=== PATIENT | female | born 1940 | race African-American/Black ===

== ENCOUNTER 2018-04-13 11:23 | Inpatient (IN) ==
[2018-04-13 12:16] LABS: Baso # (Auto) 0.1 th/mm3 (0.0-0.2); Baso % (Auto) 1.2 % (0.0-2.0); Eos % (Auto) 0.4 % (0.0-4.0); Hematocrit 35.4 % (35.0-46.0); Hemoglobin 11.5 gm/dL (11.6-15.3); Lymph # (Auto) 1.7 th/mm3 (1.0-4.8); Lymph % (Auto) 14.1 % (9.0-44.0); Mean Corpuscular HGB Conc 32.4 % (32.0-36.0); Mean Corpuscular Hemoglobin 29.6 pg (27.0-34.0); Mean Corpuscular Volume 91.2 fL (80.0-100.0); Mean Platelet Volume 6.5 fL (7.0-11.0); Neut # (Auto) 9.3 th/mm3 (1.8-7.7); Neut % (Auto) 76.3 % (16.0-70.0); Platelet Count 314 th/mm3 (150-450); Red Blood Count 3.88 mil/mm3 (4.00-5.30); Red Cell Distribution Width 15.6 % (11.6-17.2); White Blood Count 12.2 th/mm3 (4.0-11.0)
[2018-04-13 12:32] LABS: Activated Partial Thrombo Time 28.2 sec (23.4-31.7); INR 1.2 Ratio; Prothrombin Time 11.7 sec (9.8-11.6)
[2018-04-13 12:41] LABS: Bacteria,Urine Many /hpf; Bilirubin,Urine Negative (Negative); Clarity,Urine Hazy (Clear); Color,Urine Yellow (Yellw/Straw); Glucose,Urine (UA) Negative (Negative); Leukocyte Esterase,Urine Moderate (Negative); Mucus,Urine Few /lpf (Occasional); Nitrite,Urine Negative (Negative); Specific Gravity,Urine 1.017 (1.002-1.035); Squamous Epithelial Cell,Urine <1 /hpf (0-5)
[2018-04-13 12:42] LABS: Albumin 2.5 g/dL (3.4-5.0); Anion Gap 8 meq/L (5-15); Aspartate Aminotransferase 22 U/L (15-37); Calcium 8.2 mg/dL (8.5-10.1); Carbon Dioxide 27.8 meq/L (21.0-32.0); Chloride 102 meq/L (98-107); Glomerular Filtration Rate 32 mL/min (>89); Glucose,Random 152 mg/dL (74-106); Magnesium 1.3 mg/dL (1.5-2.5); Potassium 6.4 meq/L (3.5-5.1); Sodium 138 meq/L (136-145)
--- NOTE | 2018-04-13 12:46 | XR ---
EXAM DATE: 04/13/2018 12:42 PM EST AGE/SEX: 78 years / Female INDICATIONS: Short of breath, altered mental status CLINICAL DATA: This is the patient's initial encounter. Patient reports that signs and symptoms have been present for 1 day and indicates a pain score of Nonresponsive. MEDICAL/SURGICAL HISTORY: Chronic obstructive pulmonary disease. Diabetes. Hypertension. SC Non-responsive. COMPARISON: [facility], CHEST 1V SINGLE AP, 03/29/2018. . FINDINGS: The heart is stable. Minimal increased perihilar interstitial markings are noted consistent with mini mal pulmonary vascular congestion or minimal infiltrate/scattered atelectasis. CONCLUSION: 1. Minimal increased perihilar interstitial markings consistent with minimal pulmonary vascular norma estion or minimal infiltrate/scattered atelectasis. Electronically signed by: Humberto Brewer MD Board Certified Radiologist 04/13/2018 12:44 PM EST
[2018-04-13 12:47] LABS: Alanine Aminotransferase 13 U/L (10-53); Alkaline Phosphatase 102 U/L (45-117); Blood Urea Nitrogen 33 mg/dL (7-18); Total Protein 7.3 g/dL (6.4-8.2)
--- NOTE | 2018-04-13 13:45 | ED ---
HPI General Chief Complaint: Altered Mental Status Stated Complaint: Altered Mental Status Time Seen by Provider: 04/13/18 11:32 Source: patient, EMS and RN notes reviewed Mode of arrival: EMS Limitations: altered mental status History of Present Illness HPI narrative: 78-year-old female presents by ambulance with recent change of altered mental status. Patient has known history of stroke with left-sided deficit per EMS but she has been more confused recently. She recently had a UTI diagnosis and seems to be getting more confused when the antibiotics were stopped. Patient denies specific complaints but is a very poor historian and history is mainly obtained through EMS and paperwork as no one else is present at bedside on initial examination Related Data Home Medications Medication Instructions Recorded Confirmed atorvastatin [Lipitor] 20 mg PO HS 03/29/18 04/13/18 carvedilol [Coreg] 6.25 mg PO Q12HR 03/29/18 04/13/18 clonazepam [Klonopin] 0.5 mg PO BID 03/29/18 04/13/18 digoxin [Lanoxin] 0.125 mg PO DAILY 03/29/18 04/13/18 docusate sodium [Colace] 100 mg PO HS 03/29/18 04/13/18 escitalopram oxalate [Lexapro] 10 mg PO DAILY 03/29/18 04/13/18 furosemide [Lasix] 40 mg PO DAILY 03/29/18 04/13/18 glucagon (human recombinant) 1 mg IM DIRECTED PRN 03/29/18 04/13/18 [GlucaGen HypoKit] insulin glargine [Lantus U-100 18 unit SUBCUT QPM 03/29/18 04/13/18 Insulin] insulin glargine [Lantus U-100 26 unit SUBCUT QAM 03/29/18 04/13/18 Insulin] insulin lispro [Humalog U-100 10 unit SUBCUT BIDAC 03/29/18 04/13/18 Insulin] lisinopril 20 mg PO DAILY 03/29/18 04/13/18 metformin 1,000 mg PO BID 03/29/18 04/13/18 mirtazapine [Remeron] 7.5 mg PO HS 03/29/18 04/13/18 pantoprazole 40 mg PO BID 03/29/18 04/13/18 potassium chloride [Klor-Con 10] 10 meq PO DAILY 03/29/18 04/13/18 rivaroxaban 20 mg PO QPM 03/29/18 04/13/18 tramadol 50 mg PO Q8HR PRN 03/29/18 04/13/18 amlodipine [Norvasc] 10 mg PO DAILY 04/13/18 04/13/18 Previous Rx's Medication Instructions Recorded nitrofurantoin monohyd/m-cryst 100 mg PO BIDPC #14 cap 03/31/18 Allergies Allergy/AdvReac Type Severity Reaction Status Date / Time codeine Allergy Severe Anaphylaxis Verified 04/13/18 11:42 diatrizoate meglumine Allergy Severe Itching Verified 04/13/18 11:42 gadobenic acid Allergy Severe Itching Verified 04/13/18 11:42 gadodiamide Allergy Severe Itching Verified 04/13/18 11:42 gadoteridol Allergy Severe Itching Verified 04/13/18 11:42 iodixanol Allergy Severe Itching Verified 04/13/18 11:42 iohexol Allergy Severe Itching Verified 04/13/18 11:42 penicillin G Allergy Severe Anaphylaxis Verified 04/13/18 11:42 Review of Systems ROS Unobtainable ROS Unobtainable: unobtainable due to mental status PMFSH Medical History Medical History Anemia in chronic kidney disease (Acute) Heart failure (Acute) Major depressive disorder (Acute) Malignant neoplasm of ascending colon (Acute) UTI (urinary tract infection) (Acute) Anxiety (Acute) Atrial fibrillation (Acute) COPD (chronic obstructive pulmonary disease) (Acute) CVA (cerebral vascular accident) (Acute) HTN (hypertension) (Acute) Heart failure (Acute) Hemiplegia (Acute) History of DVT of lower extremity (Acute) History of GI bleed (Acute) History of pulmonary embolism (Acute) Hyperlipidemia (Acute) Type 2 diabetes mellitus (Acute) Surgical History Surgical History History of hysterectomy (Acute) Family History Family History Father Family history of diabetes mellitus Family history of heart disease Social History Social History Substance History: Unable to Obtain Second Hand Smoke Exposure: No Smoking Status: Unknown if ever smoked How Often Do You Have a Drink Containing Alcohol: Unable to Obtain Recent Travel in [facility] within the Last 8 Weeks: No Recent Out of Country Travel within the Last 8 Weeks: No Immunization History Tetanus Immunization: Unable to Assess Exam Narrative Exam Narrative: GENERAL: 78 y/o female in no apparent distress SKIN: Focused skin assessment warm/dry. HEAD: Atraumatic. Normocephalic. EYES: Pupils equal and round. No scleral icterus. No injection or drainage. ENT: No nasal bleeding or discharge. Mucous membranes pink and moist. NECK: Trachea midline. CARDIOVASCULAR: Regular rate and rhythm. RESPIRATORY: No accessory muscle use. no increased effort GASTROINTESTINAL: Abdomen soft, nondistended. MUSCULOSKELETAL: No obvious deformities. No clubbing. No cyanosis. NEUROLOGICAL: Awake and alert to name and location, unsure of date. left sided deficit from prior stroke noted. Clear speech. Course Reevaluation(s) Reevaluation #1: Given allergies patient was given Azactam for UTI and sepsis setting. Given stable blood pressure IV fluids were given very slowly and she will be monitored closely in the hospital Reevaluation #2: Potassium was elevated on repeat so was given hyperkalemia meds of calcium, bicarb, dextrose, insulin, albuterol and Kayexalate. She was also given gentle IV fluid hydration and will be admitted to the hospital for further care Consultations Consultation #1: dr carmona agrees to full admit Initial Documented Vital Signs Pulse Rate 67 04/13/18 11:29 Respiratory Rate 18 04/13/18 11:29 Blood Pressure 111/61 04/13/18 11:29 Pulse Oximetry 98 04/13/18 11:29 Last Documented Vital Signs Temperature 98.3 F 04/13/18 12:15 Pulse Rate 95 H 04/13/18 15:11 Respiratory Rate 14 04/13/18 15:11 Blood Pressure 126/61 04/13/18 12:15 Pulse Oximetry 98 04/13/18 15:14 Medical Decision Making [facility] Narrative Medical decision making narrative: We will check blood work, imaging and reevaluate Medical Screen Exam Complete: Yes Emergency Medical Condition: Yes Differential Diagnosis Differential Diagnosis: UTI, intracranial, renal failure, hyponatremia Lab Data Lab results reviewed: Yes I reviewed the patient's lab results. Result diagrams: 04/13/18 11:46 04/13/18 13:55 Lab Results 04/13/18 04/13/18 04/13/18 Range/Units 11:46 11:46 11:46 WBC 12.2 H (4.0-11.0) th/mm3 RBC 3.88 L (4.00-5.30) mil/mm3 Hgb 11.5 L (11.6-15.3) gm/dL Hct 35.4 (35.0-46.0) % MCV 91.2 (80.0-100.0) fL MCH 29.6 (27.0-34.0) pg MCHC 32.4 (32.0-36.0) % RDW 15.6 (11.6-17.2) % Plt Count 314 (150-450) th/mm3 MPV 6.5 L (7.0-11.0) fL Neut % (Auto) 76.3 H (16.0-70.0) % Lymph % (Auto) 14.1 (9.0-44.0) % [place] % (Auto) 8.0 (0.0-8.0) % Eos % (Auto) 0.4 (0.0-4.0) % Baso % (Auto) 1.2 (0.0-2.0) % Neut # (Auto) 9.3 H (1.8-7.7) th/mm3 Lymph # (Auto) 1.7 (1.0-4.8) th/mm3 [place] # (Auto) 1.0 H (0.0-0.9) th/mm3 Eos # (Auto) 0.0 (0.0-0.4) th/mm3 Baso # (Auto) 0.1 (0.0-0.2) th/mm3 WBC Differential . Differential Comment Auto diff final PT 11.7 H (9.8-11.6) sec INR 1.2 Ratio APTT 28.2 (23.4-31.7) sec Sodium 138 (136-145) meq/L Potassium 6.4 H (3.5-5.1) meq/L Chloride 102 (98-107) meq/L Carbon Dioxide 27.8 (21.0-32.0) meq/L Anion Gap 8 (5-15) meq/L BUN 33 H (7-18) mg/dL Creatinine 1.83 H (0.50-1.00) mg/dL Estimated GFR 32 L (>89) mL/min Random Glucose 152 H (74-106) mg/dL Lactic Acid (0.4-2.0) mmol/L Calcium 8.2 L (8.5-10.1) mg/dL Magnesium 1.3 L (1.5-2.5) mg/dL Total Bilirubin 0.4 (0.2-1.0) mg/dL AST 22 (15-37) U/L ALT 13 (10-53) U/L Alkaline Phosphatase 102 (45-117) U/L Total Creatine Kinase (26-192) U/L B-Natriuretic Peptide (0-100) pg/mL Total Protein 7.3 (6.4-8.2) g/dL Albumin 2.5 L (3.4-5.0) g/dL Urine Color (Yellw/Straw) Urine Clarity (Clear) Urine pH (5.0-8.5) Ur Specific [place] (1.002-1.035) Urine Protein (Neg-Trace) mg/dL Urine Glucose (UA) (Negative) mg/dL Urine Ketones (Negative) mg/dL Urine Occult Blood (Negative) Urine Nitrate (Negative) Urine Bilirubin (Negative) Urine Urobilinogen (Less than 2) mg/dL Ur Leukocyte Esterase (Negative) Urine WBC (0-5) /hpf Ur Squamous Epith Cells (0-5) /hpf Urine Bacteria (None) /hpf Urine Mucus (Occasional) /lpf Urine Yeast (None) /hpf Micro UA Comment Ur Microscopic Review Urine Culture Comments 04/13/18 04/13/18 04/13/18 Range/Units 11:46 11:46 11:46 WBC (4.0-11.0) th/mm3 RBC (4.00-5.30) mil/mm3 Hgb (11.6-15.3) gm/dL Hct (35.0-46.0) % MCV (80.0-100.0) fL MCH (27.0-34.0) pg MCHC (32.0-36.0) % RDW (11.6-17.2) % Plt Count (150-450) th/mm3 MPV (7.0-11.0) fL Neut % (Auto) (16.0-70.0) % Lymph % (Auto) (9.0-44.0) % [place] % (Auto) (0.0-8.0) % Eos % (Auto) (0.0-4.0) % Baso % (Auto) (0.0-2.0) % Neut # (Auto) (1.8-7.7) th/mm3 Lymph # (Auto) (1.0-4.8) th/mm3 [place] # (Auto) (0.0-0.9) th/mm3 Eos # (Auto) (0.0-0.4) th/mm3 Baso # (Auto) (0.0-0.2) th/mm3 WBC Differential Differential Comment PT (9.8-11.6) sec INR Ratio APTT (23.4-31.7) sec Sodium (136-145) meq/L Potassium (3.5-5.1) meq/L Chloride (98-107) meq/L Carbon Dioxide (21.0-32.0) meq/L Anion Gap (5-15) meq/L BUN (7-18) mg/dL Creatinine (0.50-1.00) mg/dL Estimated GFR (>89) mL/min Random Glucose (74-106) mg/dL Lactic Acid 3.1 H (0.4-2.0) mmol/L Calcium (8.5-10.1) mg/dL Magnesium (1.5-2.5) mg/dL Total Bilirubin (0.2-1.0) mg/dL AST (15-37) U/L ALT (10-53) U/L Alkaline Phosphatase (45-117) U/L Total Creatine Kinase 65 (26-192) U/L B-Natriuretic Peptide 5 (0-100) pg/mL Total Protein (6.4-8.2) g/dL Albumin (3.4-5.0) g/dL Urine Color (Yellw/Straw) Urine Clarity (Clear) Urine pH (5.0-8.5) Ur Specific [place] (1.002-1.035) Urine Protein (Neg-Trace) mg/dL Urine Glucose (UA) (Negative) mg/dL Urine Ketones (Negative) mg/dL Urine Occult Blood (Negative) Urine Nitrate (Negative) Urine Bilirubin (Negative) Urine Urobilinogen (Less than 2) mg/dL Ur Leukocyte Esterase (Negative) Urine WBC (0-5) /hpf Ur Squamous Epith Cells (0-5) /hpf Urine Bacteria (None) /hpf Urine Mucus (Occasional) /lpf Urine Yeast (None) /hpf Micro UA Comment Ur Microscopic Review Urine Culture Comments 04/13/18 04/13/18 04/13/18 Range/Units 11:46 11:55 13:55 WBC (4.0-11.0) th/mm3 RBC (4.00-5.30) mil/mm3 Hgb (11.6-15.3) gm/dL Hct (35.0-46.0) % MCV (80.0-100.0) fL MCH (27.0-34.0) pg MCHC (32.0-36.0) % RDW (11.6-17.2) % Plt Count (150-450) th/mm3 MPV (7.0-11.0) fL Neut % (Auto) (16.0-70.0) % Lymph % (Auto) (9.0-44.0) % [place] % (Auto) (0.0-8.0) % Eos % (Auto) (0.0-4.0) % Baso % (Auto) (0.0-2.0) % Neut # (Auto) (1.8-7.7) th/mm3 Lymph # (Auto) (1.0-4.8) th/mm3 [place] # (Auto) (0.0-0.9) th/mm3 Eos # (Auto) (0.0-0.4) th/mm3 Baso # (Auto) (0.0-0.2) th/mm3 WBC Differential Differential Comment PT (9.8-11.6) sec INR Ratio APTT (23.4-31.7) sec Sodium (136-145) meq/L Potassium (3.5-5.1) meq/L Chloride (98-107) meq/L Carbon Dioxide (21.0-32.0) meq/L Anion Gap (5-15) meq/L BUN (7-18) mg/dL Creatinine (0.50-1.00) mg/dL Estimated GFR (>89) mL/min Random Glucose (74-106) mg/dL Lactic Acid 2.9 H (0.4-2.0) mmol/L Calcium (8.5-10.1) mg/dL Magnesium (1.5-2.5) mg/dL Total Bilirubin (0.2-1.0) mg/dL AST (15-37) U/L ALT (10-53) U/L Alkaline Phosphatase (45-117) U/L Total Creatine Kinase (26-192) U/L B-Natriuretic Peptide 7 (0-100) pg/mL Total Protein (6.4-8.2) g/dL Albumin (3.4-5.0) g/dL Urine Color Yellow (Yellw/Straw) Urine Clarity Hazy H (Clear) Urine pH 5.0 (5.0-8.5) Ur Specific [place] 1.017 (1.002-1.035) Urine Protein Negative (Neg-Trace) mg/dL Urine Glucose (UA) Negative (Negative) mg/dL Urine Ketones Negative (Negative) mg/dL Urine Occult Blood Negative (Negative) Urine Nitrate Negative (Negative) Urine Bilirubin Negative (Negative) Urine Urobilinogen Less than 2 (Less than 2) mg/dL Ur Leukocyte Esterase Moderate H (Negative) Urine WBC 3 (0-5) /hpf Ur Squamous Epith Cells <1 (0-5) /hpf Urine Bacteria Many H (None) /hpf Urine Mucus Few H (Occasional) /lpf Urine Yeast Few H (None) /hpf Micro UA Comment Cath-culture ind Ur Microscopic Review Not Reportable Urine Culture Comments Cath-cult indicated 04/13/18 Range/Units 13:55 WBC (4.0-11.0) th/mm3 RBC (4.00-5.30) mil/mm3 Hgb (11.6-15.3) gm/dL Hct (35.0-46.0) % MCV (80.0-100.0) fL MCH (27.0-34.0) pg MCHC (32.0-36.0) % RDW (11.6-17.2) % Plt Count (150-450) th/mm3 MPV (7.0-11.0) fL Neut % (Auto) (16.0-70.0) % Lymph % (Auto) (9.0-44.0) % [place] % (Auto) (0.0-8.0) % Eos % (Auto) (0.0-4.0) % Baso % (Auto) (0.0-2.0) % Neut # (Auto) (1.8-7.7) th/mm3 Lymph # (Auto) (1.0-4.8) th/mm3 [place] # (Auto) (0.0-0.9) th/mm3 Eos # (Auto) (0.0-0.4) th/mm3 Baso # (Auto) (0.0-0.2) th/mm3 WBC Differential Differential Comment PT (9.8-11.6) sec INR Ratio APTT (23.4-31.7) sec Sodium (136-145) meq/L Potassium 6.3 H (3.5-5.1) meq/L Chloride (98-107) meq/L Carbon Dioxide (21.0-32.0) meq/L Anion Gap (5-15) meq/L BUN (7-18) mg/dL Creatinine (0.50-1.00) mg/dL Estimated GFR (>89) mL/min Random Glucose (74-106) mg/dL Lactic Acid (0.4-2.0) mmol/L Calcium (8.5-10.1) mg/dL Magnesium (1.5-2.5) mg/dL Total Bilirubin (0.2-1.0) mg/dL AST (15-37) U/L ALT (10-53) U/L Alkaline Phosphatase (45-117) U/L Total Creatine Kinase (26-192) U/L B-Natriuretic Peptide (0-100) pg/mL Total Protein (6.4-8.2) g/dL Albumin (3.4-5.0) g/dL Urine Color (Yellw/Straw) Urine Clarity (Clear) Urine pH (5.0-8.5) Ur Specific [place] (1.002-1.035) Urine Protein (Neg-Trace) mg/dL Urine Glucose (UA) (Negative) mg/dL Urine Ketones (Negative) mg/dL Urine Occult Blood (Negative) Urine Nitrate (Negative) Urine Bilirubin (Negative) Urine Urobilinogen (Less than 2) mg/dL Ur Leukocyte Esterase (Negative) Urine WBC (0-5) /hpf Ur Squamous Epith Cells (0-5) /hpf Urine Bacteria (None) /hpf Urine Mucus (Occasional) /lpf Urine Yeast (None) /hpf Micro UA Comment Ur Microscopic Review Urine Culture Comments Imaging Data Attestation: I personally reviewed and interpreted this imaging study as follows : Radiologist's impression: Chest X-Ray 04/13/18 11:32 CONCLUSION: 1. Minimal increased perihilar interstitial markings consistent with minimal pulmonary vascular congestion or minimal infiltrate/scattered atelectasis. Head CT 04/13/18 11:32 CONCLUSION: 1. 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 2. Chronic left-sided mastoiditis. 3. Nothing acute. . Abdomen/Pelvis CT 04/13/18 12:52 CONCLUSION: 1. Mild diffuse urinary bladder wall thickening. 2. Calcified density layering within the urinary bladder consistent with probable bladder stones. 3. Stable nodular enlargement of the adrenal glands bilaterally consistent with possible adrenal hyperplasia. 4. Stable multiple bilateral renal cysts. 5. Enlarged fatty liver. 6. Posterior bibasilar pulmonary infiltrates. Discharge Plan Discharge Disposition Patient Disposition: ED Admit(ED Internal Use Only) Discharge Order Discharge Orders: ED Use Only Admit Order (Routine); Ordered 04/13/18 Ordered By: Kacie Schmidt Discharge Details Diagnosis: Sepsis, Altered mental status, Acute UTI, Acute renal failure Physicians Team ED Provider: Kacie Schmidt Primary Care Provider: Chandana Dallas Attending Provider: Patience Carmona Discharge Interventions Interventions: Vital Signs Last Done: 04/13/18 12:15 Status ED Status: Admitted Patient
--- NOTE | 2018-04-13 14:01 | CT ---
EXAM DATE: 04/13/2018 1:35 PM EST AGE/SEX: 78 years / Female INDICATIONS: Altered mental status. CLINICAL DATA: This is the patient's initial encounter. Patient reports that signs and symptoms have been present for 1 day and indicates a pain score of Nonresponsive. MEDICAL/SURGICAL HISTORY: Carcinoma, colon. Hypertension. Cardiovascular disease. None. RADIATION DOSE: 56.35 CTDI (mGy) COMPARISON: No prior exams available for comparison. TECHNIQUE: CT of the head without contrast. Using automated exposure control and adjustment of the mA and/or kV according to patient size, radiation dose was kept as low as reasonably achievable to ob tain optimal diagnostic quality images. DICOM format image data is available electronically for revi ew and comparison. FINDINGS: Cerebrum: There is some cortical and central atrophy. No evidence of midline shift, mass lesion, he morrhage or acute infarction. Extensive periventricular areas of diminished attenuation are characte ristic of severe small vessel ischemic demyelination. 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 Posterior Fossa: The cerebellum and brainstem are intact. The 4th ventricle is midline. The cerebe llopontine angle is unremarkable. Extracranial: The visualized portion of the orbits is intact. Sclerosis in the left temporal bone ch aracteristic of chronic mastoiditis. Skull: The calvaria is intact. No evidence of skull fracture. CONCLUSION: 1. 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 2. Chronic left-sided mastoiditis. 3. Nothing acute. . Electronically signed by: Sean Schuster MD Board Certified Radiologist 04/13/2018 2:00 PM EST
--- NOTE | 2018-04-13 14:15 | CT ---
EXAM DATE: 04/13/2018 1:45 PM EST AGE/SEX: 78 years / Female INDICATIONS: Abdominal pain. CLINICAL DATA: This is the patient's initial encounter. Patient reports that signs and symptoms have been present for 1 day and indicates a pain score of Nonresponsive. MEDICAL/SURGICAL HISTORY: Hypertension. Diabetes. Chronic renal insufficiency. None. RADIATION DOSE: 26.99 CTDI (mGy) ; Patient body habitus [place] [facility] [place], [place]/20/2015. [facility] [place] W & W/O CONTRAST, 10/18/19 16. . TECHNIQUE: Multiple contiguous axial images were obtained through the abdomen. Images were obtained using multiple row detector helical technique. Using automated exposure control and adjustment of the mA and/or kV according to patient size, radiation dose was kept as low as reasonably achievable to o btain optimal diagnostic quality images. DICOM format image data is available electronically for rev iew and comparison. FINDINGS: Lower Lungs: Posterior bibasilar patchiness is noted. Liver: The liver is enlarged and demonstrates diffuse fatty infiltration. No focal mass is noted.. Th ere is no dilation of the biliary tree. Spleen: Homogeneous density without enlargement. Pancreas: Unremarkable without mass or calcification. Kidneys: Normal in size and shape. No evidence of mass or hydronephrosis. Multiple stable bilateral renal cysts are noted. Adrenal Glands: Nodular enlargement of the adrenal glands is stable. Aorta: The aorta and proximal iliac vessels are grossly unremarkable without aneurysmal dilation. Bowel/Mesentery: The bowel loops are grossly unremarkable. The cecum and sigmoid colon have a normal configuration. Abdominal Wall: Intact. Retroperitoneum: No evidence of adenopathy in the retrocrural, para-aortic, or deep pelvic regions. Bladder: Mild diffuse urinary bladder wall thickening is noted. There is calcified density layering w ithin the urinary bladder consistent with probable bladder stones. Reproductive Organs: No abnormal masses or calcifications seen. Inguinal: The inguinal region is unremarkable without evidence of adenopathy. Bony Structures: Degenerative changes and scoliosis of the thoracal lumbar spine are noted.. CONCLUSION: 1. Mild diffuse urinary bladder wall thickening. 2. Calcified density layering within the urinary bladder consistent with probable bladder stones. 3. Stable nodular enlargement of the adrenal glands bilaterally consistent with possible adrenal hyp erplasia. 4. Stable multiple bilateral renal cysts. 5. Enlarged fatty liver. 6. Posterior bibasilar pulmonary infiltrates. Electronically signed by: Humberto Brewer MD Board Certified Radiologist 04/13/2018 2:13 PM EST
[2018-04-13] MEDS ORDERED: Sodium Polystyrene Sulfonate/Sorbitol Liq 15 GM/60 ML UDC PO ONE (14:33)
[2018-04-13] MEDS ORDERED: RESP: Albuterol Concentrated 2.5 MG/0.5 ML Neb NEB ONE (14:33)
[2018-04-13] MEDS ORDERED: Calcium Gluconate Inj 1 GM in Sodium Chlor 0.9% Inj 100 ML IV.SIG ONE (14:33)
[2018-04-13] MEDS ORDERED: Dextrose 50% in Water 50 ML Vial IV.PUSH ONE (15:05)
[2018-04-13] MEDS ORDERED: Acetaminophen 325 MG Tablet PO PRN (16:47)
[2018-04-13] MEDS ORDERED: Bisacodyl 10 MG Supp RECTAL PRN (16:47)
--- NOTE | 2018-04-13 16:51 | P.HPIM ---
History of Present Illness Primary Care Physician: Chandana Dallas MD Chief Complaint: altered mental status History of Present Illness: 78-year-old female with multiple medical problems, presents by ambulance from SNF with recent change of altered mental status. Patient has known history of stroke with left-sided deficit per EMS and records reviewed, but she has been more confused recently. She recently had a UTI diagnosis and seems to be getting more confused when the antibiotics were stopped. Patient denies specific complaints but is a very poor historian and history is mainly obtained through EMS, paperwork, records. Inpatient Certification: I certify that the inpatient services were ordered in accordance with Medicare regulations governing the order. This includes certification that hospital inpatient services are reasonable and necessary and in the case of services not specified as inpatient-only under 42 CFR 419.22(n), that they are appropriately provided as inpatient services in accordance to with the 2-midnight benchmark under 43 CFR 412.3(e) Estimated Total Length of Stay (Days): 5 Plans for Post Hospital Care: SNF Review of Systems All other systems reviewed negative except as stated in HPI, unobtainable due to mental condition PMFSH - History History Provided By: Chief Executive Officer / EMT - Medical History Medical History: Medical History (Last Reviewed 04/13/18 @ 16:51 by Patience Ashby MD) Anemia in chronic kidney disease Heart failure Major depressive disorder Malignant neoplasm of ascending colon UTI (urinary tract infection) Anxiety Atrial fibrillation COPD (chronic obstructive pulmonary disease) CVA (cerebral vascular accident) HTN (hypertension) Heart failure Hemiplegia History of DVT of lower extremity History of GI bleed History of pulmonary embolism Hyperlipidemia Type 2 diabetes mellitus - Surgical History Surgical History: Surgical History (Last Reviewed 04/13/18 @ 16:51 by Patience Ashby MD) History of hysterectomy - Family History Family History: Family History (Last Reviewed 04/13/18 @ 16:51 by Patience Ashby MD) Father Family history of diabetes mellitus Family history of heart disease - Tobacco History Second Hand Smoke Exposure: No Smoking Status: Unknown if ever smoked - Alcohol History How Often Do You Have a Drink Containing Alcohol: Unable to Obtain - Substance Use History Substance History: Unable to Obtain - Travel History Recent Travel in the [place] Within the Last 8 Weeks: No Recent Travel Out of the Country Within the Last 8 Weeks: No - Immunization History Tetanus Immunization: Unable to Assess Medications and Allergies Active Medications: Active Medications Amlodipine Besylate (Norvasc) 10 mg PO DAILY [facility] Atorvastatin Calcium (Lipitor) 20 mg PO HS [facility] Carvedilol (Coreg) 6.25 mg PO Q12HR [facility] Clonazepam (Klonopin) 0.5 mg PO BID [facility] Digoxin (Lanoxin) 125 mcg PO DAILY [facility] Docusate Sodium (Colace) 100 mg PO HS [facility] Escitalopram Oxalate (Lexapro) 10 mg PO DAILY [facility] Furosemide (Lasix) 40 mg PO DAILY [facility] Ceftriaxone Sodium 1,000 mg/ (Sodium Chloride) 100 mls @ 200 mls/hr IV.SIG Q24H DIPIKA Lisinopril (Prinivil) 20 mg PO DAILY [facility] Mirtazapine (Remeron) 7.5 mg PO HS [facility] Pantoprazole Sodium (Protonix) 40 mg PO BID DIP[facility] Rivaroxaban (Xarelto) 20 mg PO QPM [facility] Sodium Chloride (Ns Flush) 2 ml IV.FLUSH PRN PRN PRN Reason: FLUSH AFTER USING IV ACCESS Tramadol HCl (Ultram) 50 mg PO Q8HR PRN PRN Reason: Moderate to severe pain Allergies Allergy/AdvReac Type Severity Reaction Status Date / Time codeine Allergy Severe Anaphylaxis Verified 04/13/18 11:42 diatrizoate meglumine Allergy Severe Itching Verified 04/13/18 11:42 gadobenic acid Allergy Severe Itching Verified 04/13/18 11:42 gadodiamide Allergy Severe Itching Verified 04/13/18 11:42 gadoteridol Allergy Severe Itching Verified 04/13/18 11:42 iodixanol Allergy Severe Itching Verified 04/13/18 11:42 iohexol Allergy Severe Itching Verified 04/13/18 11:42 penicillin G Allergy Severe Anaphylaxis Verified 04/13/18 11:42 Home Medications Medication Instructions Recorded Confirmed Type atorvastatin [Lipitor] 20 mg PO HS 03/29/18 04/13/18 History carvedilol [Coreg] 6.25 mg PO Q12HR 03/29/18 04/13/18 History clonazepam [Klonopin] 0.5 mg PO BID 03/29/18 04/13/18 History digoxin [Lanoxin] 0.125 mg PO DAILY 03/29/18 04/13/18 History docusate sodium [Colace] 100 mg PO HS 03/29/18 04/13/18 History escitalopram oxalate [Lexapro] 10 mg PO DAILY 03/29/18 04/13/18 History furosemide [Lasix] 40 mg PO DAILY 03/29/18 04/13/18 History glucagon (human recombinant) 1 mg IM DIRECTED PRN 03/29/18 04/13/18 History [GlucaGen HypoKit] insulin glargine [Lantus U-100 18 unit SUBCUT QPM 03/29/18 04/13/18 History Insulin] insulin glargine [Lantus U-100 26 unit SUBCUT QAM 03/29/18 04/13/18 History Insulin] insulin lispro [Humalog U-100 10 unit SUBCUT BIDAC 03/29/18 04/13/18 History Insulin] lisinopril 20 mg PO DAILY 03/29/18 04/13/18 History metformin 1,000 mg PO BID 03/29/18 04/13/18 History mirtazapine [Remeron] 7.5 mg PO HS 03/29/18 04/13/18 History pantoprazole 40 mg PO BID 03/29/18 04/13/18 History potassium chloride [Klor-Con 10] 10 meq PO DAILY 03/29/18 04/13/18 History rivaroxaban 20 mg PO QPM 03/29/18 04/13/18 History tramadol 50 mg PO Q8HR PRN 03/29/18 04/13/18 History amlodipine [Norvasc] 10 mg PO DAILY 04/13/18 04/13/18 History Exam Vital signs: Vital Signs 04/13/18 11:29 04/13/18 11:39 04/13/18 12:15 Temperature 98.3 F Pulse Rate 67 92 H 93 H Respiratory Rate 18 18 Blood Pressure 111/61 126/61 Pulse Oximetry 98 98 100 04/13/18 15:11 04/13/18 15:14 04/13/18 16:26 Temperature Pulse Rate 95 H 104 H Respiratory Rate 14 19 Blood Pressure 136/66 Pulse Oximetry 98 97 Intake & Output 04/12/18 04/13/18 04/13/18 18:59 06:59 18:59 Intake Total 100 / 100 Output Total 250 / 250 Balance -150 / -150 Weight 88.451 kg Intake: IV 100 / 100 Azactam Inj 1,000 MG In NS Inj 100 / 100 100 ML @ 200 mls/hr IV.SIG STAT STA Rx#:[id number] Output: Urine Amount (Catheter) 250 / 250 Straight 250 / 250 Narrative: GENERAL: 78 yo female, well nourished well developed , somnolent. SKIN: Warm and dry. HEAD: Atraumatic. Normocephalic. EYES: Pupils equal and round. No scleral icterus. No injection or drainage. ENT: No nasal bleeding or discharge. Mucous membranes pink and moist. NECK: Trachea midline. No JVD. CARDIOVASCULAR: Regular rate and rhythm. RESPIRATORY: No accessory muscle use. Clear to auscultation. Breath sounds equal bilaterally. GASTROINTESTINAL: Abdomen soft, non-tender, nondistended. Hepatic and splenic margins not palpable. MUSCULOSKELETAL: Extremities without clubbing, cyanosis, or edema. No obvious deformities. NEUROLOGICAL: Somnolent. No obvious cranial nerve deficits. Motor grossly within normal limits. Follows some commands. Results - Labs CBC & Chem 7: 04/13/18 11:46 04/13/18 13:55 Labs: Short CBC 04/13/18 Range/Units 11:46 WBC 12.2 H (4.0-11.0) th/mm3 Hgb 11.5 L (11.6-15.3) gm/dL Hct 35.4 (35.0-46.0) % Plt Count 314 (150-450) th/mm3 BMP 04/13/18 04/13/18 11:46 13:55 Sodium 138 Potassium 6.4 H 6.3 H Chloride 102 Carbon Dioxide 27.8 BUN 33 H Creatinine 1.83 H Calcium 8.2 L Cardiac Enzymes 04/13/18 Range/Units 11:46 Total Creatine Kinase 65 (26-192) U/L Liver Function 04/13/18 Range/Units 11:46 Total Bilirubin 0.4 (0.2-1.0) mg/dL AST 22 (15-37) U/L ALT 13 (10-53) U/L Alkaline Phosphatase 102 (45-117) U/L Albumin 2.5 L (3.4-5.0) g/dL Urine 04/13/18 Range/Units 11:55 Urine Color Yellow (Yellw/Straw) Urine Clarity Hazy H (Clear) Urine pH 5.0 (5.0-8.5) Ur Specific Fay 1.017 (1.002-1.035) Urine Protein Negative (Neg-Trace) mg/dL Urine Glucose (UA) Negative (Negative) mg/dL - Imaging Impressions Chest X-Ray 04/13/18 11:32 CONCLUSION: 1. Minimal increased perihilar interstitial markings consistent with minimal pulmonary vascular congestion or minimal infiltrate/scattered atelectasis. Head CT 04/13/18 11:32 CONCLUSION: 1. 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 2. Chronic left-sided mastoiditis. 3. Nothing acute. . Abdomen/Pelvis CT 04/13/18 12:52 CONCLUSION: 1. Mild diffuse urinary bladder wall thickening. 2. Calcified density layering within the urinary bladder consistent with probable bladder stones. 3. Stable nodular enlargement of the adrenal glands bilaterally consistent with possible adrenal hyperplasia. 4. Stable multiple bilateral renal cysts. 5. Enlarged fatty liver. 6. Posterior bibasilar pulmonary infiltrates. Caprini VTE Risk Assessment Caprini VTE Risk Assessment: Moderate/High Risk (score >= 2) Caprini Risk Assessment Model: Point Value = 1 Point Value = 2 Point Value = 3 Point Value = 5 Age 41-60 Minor surgery BMI > 25 kg/m2 Swollen legs Varicose veins or History of unexplained or recurrent spontaneous Oral contraceptives or hormone replacement Sepsis (< 1 month) Serious lung disease, including pneumonia (< 1 month) Abnormal pulmonary function Acute myocardial infarction Congestive heart failure (< 1 month) History of inflammatory bowel disease Medical patient at bed rest Age 61-74 Arthroscopic surgery Major open surgery (> 45 min) Laparoscopic surgery (> 45 min) Malignancy Confined to bed (> 72 hours) Immobilizing plaster cast Central venous access Age >= 75 History of VTE Family history of VTE Factor V Leiden Prothrombin [id number] Lupus anticoagulant Anticardiolipin antibodies Elevated serum homocysteine Heparin-induced thrombocytopenia Other congenital or acquired thrombophilia Stroke (< 1 month) Elective arthroplasty Hip, pelvis, or leg fracture Acute spinal cord injury (< 1 month) Prophylaxis Regimen: Total Risk Factor Score Risk Level Prophylaxis Regimen 0-1 Low Early ambulation 2 Moderate Order ONE of the following: *Sequential Compression Device (SCD) *Heparin 5000 units SQ BID 3-4 Higher Order ONE of the following medications: *Heparin 5000 units SQ TID *Enoxaparin/Lovenox 40 mg SQ daily (WT < 150 kg, CrCl > 30 mL/min) *Enoxaparin/Lovenox 30 mg SQ daily (WT < 150 kg, CrCl > 10-29 mL/min) *Enoxaparin/Lovenox 30 mg SQ BID (WT < 150 kg, CrCl > 30 mL/min) AND/OR *Sequential Compression Device (SCD) 5 or more Highest Order ONE of the following medications: *Heparin 5000 units SQ TID (Preferred with Epidurals) *Enoxaparin/Lovenox 40 mg SQ daily (WT < 150 kg, CrCl > 30 mL/min) *Enoxaparin/Lovenox 30 mg SQ daily (WT < 150 kg, CrCl > 10-29 mL/min) *Enoxaparin/Lovenox 30 mg SQ BID (WT < 150 kg, CrCl > 30 mL/min) AND *Sequential Compression Device (SCD) Assessment and Plan - Plan 78 yo female, with Acute toxic/metabolic encephalopathy- 2/2 severe sepsis Severe Sepsis( leukocytosis, tachycardia, UTI poss PNA, elevated LA, DOUG ) on admission Penicillin allergy DOUG Lactic acidosis Blood cultures, urine cultures pending Start meropenem IV Consult ID IVF- gentle as patient also with h/o CHF Monitor kidney function closely. Repeat LA. Telemetry Hyperkalemia: stop K supplement History of CVA: continue statin. Continue PT/OT. Cont home meds. History of Atrial fibrillation: Xarelto. Resume home meds Rates are controlled. History of DVT/PE: Xarelto Hypertension: Continue Coreg, Norvasc, lisinopril. Diabetes type 2: Continue her on Levemir 10 units subcutaneous twice a day, with sliding scale insulin for now. CAD: Previous stent. Holding aspirin due to bleed. Continue home medications CHF, chronic: unknown type. Continue home medications. check BNP Continue Lasix and Coreg COPD: No evidence of exacerbation. Continue bronchodilators as needed Anxiety disorder: continue Klonopin. DVT prophylaxis: SCDs, xarelto
[2018-04-13] MEDS ORDERED: Dextrose 50% in Water 50 ML Vial IV.PUSH PRN (16:53)
[2018-04-13] MEDS ORDERED: ASP: Documented allergy to Penicillins or Cephalosporins OTHER PRN ×2 (16:53→19:50)
[2018-04-13] MEDS ORDERED: Meropenem Inj 500 MG in Sodium Chlor 0.9% Inj 100 ML IV.SIG STA (16:53)
[2018-04-13] MEDS: Sod Chloride 0.9% Inj 1,000 ML IV.CONT SCH (18:36)
[2018-04-13] MEDS: Rivaroxaban 20 MG Tablet PO SCH (18:37)
[2018-04-13] MEDS: Insulin NovoLOG Aspart Correctional Sugar Inj SQ SCH ×2 (18:37→22:29)
[2018-04-13] MEDS: Mirtazapine 15 MG Tablet PO SCH (22:21)
[2018-04-13] MEDS: Carvedilol 6.25 MG Tablet PO SCH (22:23)
[2018-04-13] MEDS: Senna/Docusate Sodium 8.6/50 MG Tablet PO SCH (22:23)
[2018-04-13] MEDS: Docusate Sodium 100 MG Capsule PO SCH (22:23)
[2018-04-13] MEDS: clonazePAM 0.5 MG Tablet PO SCH (22:24)
[2018-04-13] MEDS: Insulin Detemir Inj 1,000 UNIT/10 ML Vial SQ SCH (22:28)
[2018-04-14 06:17] LABS: Baso # (Auto) 0.1 th/mm3 (0.0-0.2); Baso % (Auto) 0.7 % (0.0-2.0); Eos # (Auto) 0.1 th/mm3 (0.0-0.4); Eos % (Auto) 0.5 % (0.0-4.0); Hematocrit 35.8 % (35.0-46.0); Hemoglobin 11.8 gm/dL (11.6-15.3); Lymph # (Auto) 1.9 th/mm3 (1.0-4.8); Lymph % (Auto) 16.2 % (9.0-44.0); Mean Corpuscular HGB Conc 33.1 % (32.0-36.0); Mean Corpuscular Hemoglobin 29.2 pg (27.0-34.0); Mean Corpuscular Volume 88.3 fL (80.0-100.0); Mean Platelet Volume 6.7 fL (7.0-11.0); Mono # (Auto) 1.1 th/mm3 (0.0-0.9); Mono % (Auto) 9.4 % (0.0-8.0); Neut # (Auto) 8.4 th/mm3 (1.8-7.7); Neut % (Auto) 73.2 % (16.0-70.0); Platelet Count 328 th/mm3 (150-450); Red Blood Count 4.05 mil/mm3 (4.00-5.30); Red Cell Distribution Width 15.4 % (11.6-17.2)
[2018-04-14 06:18] LABS: White Blood Count 11.5 th/mm3 (4.0-11.0)
[2018-04-14 06:39] LABS: Calcium 7.9 mg/dL (8.5-10.1); Carbon Dioxide 32.3 meq/L (21.0-32.0); Potassium 4.6 meq/L (3.5-5.1)
[2018-04-14] MEDS: Carvedilol 6.25 MG Tablet PO SCH ×2 (09:45→21:02)
[2018-04-14] MEDS: amLODIPine 10 MG Tablet PO SCH (09:45)
[2018-04-14] MEDS: Lisinopril 20 MG Tablet PO SCH (09:45)
[2018-04-14] MEDS: Senna/Docusate Sodium 8.6/50 MG Tablet PO SCH ×2 (09:45→21:03)
[2018-04-14] MEDS: clonazePAM 0.5 MG Tablet PO SCH ×2 (09:46→21:02)
[2018-04-14] MEDS: Escitalopram 10 MG Tablet PO SCH (09:46)
[2018-04-14] MEDS: Furosemide 40 MG Tablet PO SCH (09:46)
[2018-04-14] MEDS: Digoxin 125 MCG Tablet PO SCH (09:46)
[2018-04-14] MEDS: Sod Chloride 0.9% Inj 1,000 ML IV.CONT SCH ×2 (09:47→22:52)
[2018-04-14] MEDS: Insulin NovoLOG Aspart Correctional Sugar Inj SQ SCH ×4 (09:54→21:08)
[2018-04-14] MEDS: Insulin Detemir Inj 1,000 UNIT/10 ML Vial SQ SCH ×2 (09:54→21:02)
--- NOTE | 2018-04-14 11:26 | P.PNIM ---
Subjective Interval history: The patient is in bed she appears tired and chronically ill. However says she is improved since yesterday. She is more awake and alert knows her name and date of , president of [facility], hospital name. Does not know the date. No fever overnight. Reports chills. Reports being tired. No pain in her abdomen. Some nausea but no vomiting. Able to eat some food today with help. Physical Exam Vital signs: Last Vital Signs Temp 98.3 F 04/14/18 08:00 Pulse 113 H 04/14/18 08:00 Resp 16 04/14/18 08:00 BP 144/67 H 04/14/18 08:00 Pulse Ox 93 L 04/14/18 08:00 Intake & Output 04/12/18 04/13/18 04/14/18 04/15/18 06:59 06:59 06:59 06:59 Intake Total 470 / 470 1000 / 1000 Output Total 600 / 600 Balance -130 / -130 1000 / 1000 Weight 88.2 kg Narrative: GENERAL: 78 yo female, well nourished well developed , more awake and alert. CARDIOVASCULAR: Regular rate and rhythm. RESPIRATORY: No accessory muscle use. Clear to auscultation. Breath sounds equal bilaterally. GASTROINTESTINAL: Abdomen soft, non-tender, nondistended. Hepatic and splenic margins not palpable. MUSCULOSKELETAL: Extremities without clubbing, cyanosis, or edema. No obvious deformities. NEUROLOGICAL: More awake and alert ( name, , location , president of [facility], disoriented by date). No obvious cranial nerve deficits. Motor grossly within normal limits. Follows commands. Urinary Catheter Management Straight: Cath placed during this visit: yes, but has since been removed by the nurse Insertion date: 04/13/18 Insertion time: 12: Removal date: 04/13/18 Removal time: 12:06 Results Labs CBC & Chem 7: 04/14/18 05:01 04/14/18 05:01 Labs: Microbiology 04/13/18 11:55 Blood - Peripheral Aerobic Blood Culture - Preliminary No growth in 1 day 04/13/18 11:55 Blood - Peripheral Anaerobic Blood Culture - Preliminary No growth in 1 day 04/13/18 11:50 Blood - Peripheral Aerobic Blood Culture - Preliminary No growth in 1 day 04/13/18 11:50 Blood - Peripheral Anaerobic Blood Culture - Preliminary No growth in 1 day Imaging Imaging: Impressions Chest X-Ray 04/13/18 11:32 CONCLUSION: 1. Minimal increased perihilar interstitial markings consistent with minimal pulmonary vascular congestion or minimal infiltrate/scattered atelectasis. Head CT 04/13/18 11:32 CONCLUSION: 1. 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 2. Chronic left-sided mastoiditis. 3. Nothing acute. . Abdomen/Pelvis CT 04/13/18 12:52 CONCLUSION: 1. Mild diffuse urinary bladder wall thickening. 2. Calcified density layering within the urinary bladder consistent with probable bladder stones. 3. Stable nodular enlargement of the adrenal glands bilaterally consistent with possible adrenal hyperplasia. 4. Stable multiple bilateral renal cysts. 5. Enlarged fatty liver. 6. Posterior bibasilar pulmonary infiltrates. Assessment and Plan Plan 78 yo female, with Acute toxic/metabolic encephalopathy- 2/2 severe sepsis . Resolving. More awake and alert today. Severe Sepsis( leukocytosis, tachycardia, UTI poss PNA, elevated LA, DOUG ) on admission Penicillin allergy DOUG Lactic acidosis Blood cultures, urine cultures pending Continue meropenem IV Consult ID, appreciate recommendations IVF- gentle as patient also with h/o CHF Monitor kidney function closely. Repeat LA. Telemetry Hyperkalemia: stop K supplement History of CVA: continue statin. Continue PT/OT. Cont home meds. History of Atrial fibrillation: Xarelto. Resume home meds Rates are controlled. History of DVT/PE: Xarelto Hypertension: Continue Coreg, Norvasc, lisinopril. Diabetes type 2: Continue her on Levemir 10 units subcutaneous twice a day, with sliding scale insulin for now. CAD: Previous stent. Holding aspirin due to bleed. Continue home medications CHF, chronic: unknown type. Continue home medications. check BNP Continue Lasix and Coreg COPD: No evidence of exacerbation. Continue bronchodilators as needed Anxiety disorder: continue Klonopin. DVT prophylaxis: [place] Agudelo Discussed with the patient, nurse. Progress Note: Quality VTE Deep Vein Thrombosis/Pulmonary Embolism Present on Admission: Yes
--- NOTE | 2018-04-14 15:00 | P.CONID ---
History of Present Illness Service: ID Consult date: 04/14/18 Requesting Physician: Patience Ashby Reason for Consult: severe sepsis Primary Care Provider: Chandana Dallas MD Chief Complaint: altered mental status History of Present Illness: 78 yo female unable to provide any meaningful history She p presented by ambulance with recent change of altered mental status. Patient has known history of stroke with left-sided deficit She recently had a UTI diagnosis on presentaion afebrile with mnimal leukocytosi (12 K), not much pyuria (just 3 WBC) blood clx no growth @ [address] abd/pel showed Mild diffuse urinary bladder wall thickening with probable bladder stones. Posterior bibasilar pulmonary infiltrates. She has lactic acidosis on presentation which slowly clears up presented with DOUG, GFR improving on meropenem recently grew pseudomonas in urine clx rosado S Review of Systems unobtainable due to mental condition PMFSH - History History Provided By: Patient - Medical History Medical History: Medical History (Last Reviewed 04/14/18 @ 14:43 by Hilaria Red MD) Anemia in chronic kidney disease Heart failure Major depressive disorder Malignant neoplasm of ascending colon UTI (urinary tract infection) Anxiety Atrial fibrillation COPD (chronic obstructive pulmonary disease) CVA (cerebral vascular accident) HTN (hypertension) Heart failure Hemiplegia History of DVT of lower extremity History of GI bleed History of pulmonary embolism Hyperlipidemia Type 2 diabetes mellitus - Surgical History Surgical History: Surgical History (Last Reviewed 04/14/18 @ 14:43 by Hilaria Red MD) History of hysterectomy - Family History Family History: Family History (Last Reviewed 04/14/18 @ 14:43 by Hilaria Red MD) Father Family history of diabetes mellitus Family history of heart disease - Social History I have reviewed the patient's Social History: Yes - Tobacco History Second Hand Smoke Exposure: No Tobacco Use In Past 30 Days: No Smoking Status: Former smoker Tobacco Type: Cigarettes - Alcohol History How Often Do You Have a Drink Containing Alcohol: Never - Substance Use History Substance History: No History of Abuse - Travel History Recent Travel in the [place] Within the Last 8 Weeks: No Recent Travel Out of the Country Within the Last 8 Weeks: No - Immunization History Tetanus Immunization: Unable to Assess Hx Influenza Vaccine This Season: Yes Medications and Allergies Active Medications: Active Medications Acetaminophen (Tylenol) 650 mg PO Q4H PRN PRN Reason: Temp > 100.4 Al Hydroxide/Mg Hydroxide (Milk Of Magnesia Liq) 30 ml PO Q12H PRN PRN Reason: Mild Constipation Amlodipine Besylate (Norvasc) 10 mg PO DAILY [facility] Last Admin: 04/14/18 09:45 Dose: 10 mg Atorvastatin Calcium (Lipitor) 20 mg PO HS [facility] Last Admin: 04/13/18 22:25 Dose: 20 mg Bisacodyl (Dulcolax Supp) 10 mg RECTAL DAILY PRN PRN Reason: SEVERE CONSITIPATION Carvedilol (Coreg) 6.25 mg PO Q12HR [facility] Last Admin: 04/14/18 09:45 Dose: 6.25 mg Clonazepam (Klonopin) 0.5 mg PO BID [facility] Last Admin: 04/14/18 09:46 Dose: 0.5 mg Dextrose (D50w Vial) 50 ml IV.PUSH UNSCH PRN PRN Reason: PER HYPOGLYCEMIA PROTOCOL Digoxin (Lanoxin) 125 mcg PO DAILY [facility] Last Admin: 04/14/18 09:46 Dose: 125 mcg Docusate Sodium (Colace) 100 mg PO HS [facility] Last Admin: 04/13/18 22:23 Dose: 100 mg Escitalopram Oxalate (Lexapro) 10 mg PO DAILY [facility] Last Admin: 04/14/18 09:46 Dose: 10 mg Furosemide (Lasix) 40 mg PO DAILY [facility] Last Admin: 04/14/18 09:46 Dose: 40 mg Glucagon (Glucagon Inj) 1 mg OTHER PRN PRN PRN Reason: for Hypoglycemia Protocol Sodium Chloride (Ns Inj) 1,000 mls @ 70 mls/hr IV.CONT .[id number] [facility] Last Admin: 04/14/18 09:47 Dose: 70 mls/hr Meropenem 1,000 mg/ Sodium (Chloride) 100 mls @ 200 mls/hr IV.SIG Q12H [facility] Last Infusion: 04/14/18 06:19 Dose: Infused Insulin Aspart (Novolog Insulin Correctional Sugar Inj) 0 unit SQ ACHS [facility]; Protocol Last Admin: 04/14/18 11:04 Dose: Not Given Insulin Detemir (Levemir Inj) 10 unit SQ BID [facility] Last Admin: 04/14/18 09:54 Dose: 10 unit Lactulose (Lactulose Liq) 30 ml PO DAILY PRN PRN Reason: SEVERE CONSITIPATION Lisinopril (Prinivil) 20 mg PO DAILY [facility] Last Admin: 04/14/18 09:45 Dose: 20 mg Mirtazapine (Remeron) 7.5 mg PO HS [facility] Last Admin: 04/13/18 22:21 Dose: 7.5 mg Miscellaneous Medication (Asp Crit: Doc Allergy To Penicillin/Cephalosp) 1 each OTHER UNSCH PRN PRN Reason: PHARMACY DOCUMENTATION Stop: 04/14/18 19:49 Ondansetron HCl (Zofran Inj) 4 mg IV.PUSH Q6H PRN PRN Reason: NAUSEA OR VOMITING Pantoprazole Sodium (Protonix) 40 mg PO BID [facility] Last Admin: 04/14/18 09:46 Dose: 40 mg Rivaroxaban (Xarelto) 20 mg PO DAILY@1800 [facility] Last Admin: 04/13/18 18:37 Dose: 20 mg Senna/Docusate Sodium (Dedra-Colace) 1 tab PO BID [facility] Last Admin: 04/14/18 09:45 Dose: 1 tab Sennosides (Senokot) 17.2 mg PO Q12H PRN PRN Reason: Moderate Constipation Sodium Chloride (Ns Flush) 2 ml IV.FLUSH PRN PRN PRN Reason: FLUSH AFTER USING IV ACCESS Sodium Chloride (Ns Flush) 2 ml IV.FLUSH BID [facility] Last Admin: 04/14/18 09:46 Dose: Not Given Tramadol HCl (Ultram) 50 mg PO Q8H PRN PRN Reason: Moderate to severe pain Last Admin: 04/14/18 05:40 Dose: 50 mg Allergies Allergy/AdvReac Type Severity Reaction Status Date / Time codeine Allergy Severe Anaphylaxis Verified 04/13/18 11:42 diatrizoate meglumine Allergy Severe Itching Verified 04/13/18 11:42 gadobenic acid Allergy Severe Itching Verified 04/13/18 11:42 gadodiamide Allergy Severe Itching Verified 04/13/18 11:42 gadoteridol Allergy Severe Itching Verified 04/13/18 11:42 iodixanol Allergy Severe Itching Verified 04/13/18 11:42 iohexol Allergy Severe Itching Verified 04/13/18 11:42 penicillin G Allergy Severe Anaphylaxis Verified 04/13/18 11:42 Home Medications Medication Instructions Recorded Confirmed Type atorvastatin [Lipitor] 20 mg PO HS 03/29/18 04/13/18 History carvedilol [Coreg] 6.25 mg PO Q12HR 03/29/18 04/13/18 History clonazepam [Klonopin] 0.5 mg PO BID 03/29/18 04/13/18 History digoxin [Lanoxin] 0.125 mg PO DAILY 03/29/18 04/13/18 History docusate sodium [Colace] 100 mg PO HS 03/29/18 04/13/18 History escitalopram oxalate [Lexapro] 10 mg PO DAILY 03/29/18 04/13/18 History furosemide [Lasix] 40 mg PO DAILY 03/29/18 04/13/18 History glucagon (human recombinant) 1 mg IM DIRECTED PRN 03/29/18 04/13/18 History [GlucaGen HypoKit] insulin glargine [Lantus U-100 18 unit SUBCUT QPM 03/29/18 04/13/18 History Insulin] insulin glargine [Lantus U-100 26 unit SUBCUT QAM 03/29/18 04/13/18 History Insulin] insulin lispro [Humalog U-100 10 unit SUBCUT BIDAC 03/29/18 04/13/18 History Insulin] lisinopril 20 mg PO DAILY 03/29/18 04/13/18 History metformin 1,000 mg PO BID 03/29/18 04/13/18 History mirtazapine [Remeron] 7.5 mg PO HS 03/29/18 04/13/18 History pantoprazole 40 mg PO BID 03/29/18 04/13/18 History potassium chloride [Klor-Con 10] 10 meq PO DAILY 03/29/18 04/13/18 History rivaroxaban 20 mg PO QPM 03/29/18 04/13/18 History tramadol 50 mg PO Q8HR PRN 03/29/18 04/13/18 History amlodipine [Norvasc] 10 mg PO DAILY 04/13/18 04/13/18 History Exam Vital signs: Vital Signs 04/13/18 15:11 04/13/18 15:14 04/13/18 16:26 Temperature Pulse Rate 95 H 104 H Respiratory Rate 14 19 Blood Pressure 136/66 Pulse Oximetry 98 97 04/13/18 17:35 04/13/18 20:00 04/13/18 23:35 Temperature 97.3 F L 98.8 F Pulse Rate 105 H 113 H Respiratory Rate 20 20 18 Blood Pressure 134/61 123/59 L Pulse Oximetry 95 94 L 04/13/18 23:53 04/14/18 00:00 04/14/18 04:00 Temperature 98.3 F 98.3 F 98.4 F Pulse Rate 119 H 119 H 112 H Respiratory Rate 20 20 20 Blood Pressure 147/67 H 147/67 H 136/68 Pulse Oximetry 96 96 94 L 04/14/18 08:00 04/14/18 11:59 Temperature 98.3 F Pulse Rate 113 H Respiratory Rate 16 Blood Pressure 144/67 H Pulse Oximetry 93 L 92 L Intake & Output 04/13/18 04/14/18 04/14/18 18:59 06:59 18:59 Intake Total 210 / 210 260 / 260 1000 / 1000 Output Total 250 / 250 350 / 350 Balance -40 / -40 -90 / -90 1000 / 1000 Weight 88.451 kg 88.2 kg Intake: IV 210 / 210 200 / 200 1000 / 1000 NS Inj 1,000 ML @ 70 mls/hr IV. 1000 / 1000 CONT .[id number] [facility] Rx#:[id number] Azactam Inj 1,000 MG In NS Inj 100 / 100 100 ML @ 200 mls/hr IV.SIG STAT STA Rx#:[id number] Calcium Gluconate Inj 1 GM In 110 / 110 NS Inj 100 ML @ 110 mls/hr IV. SIG ONCE ONE Rx#:[id number] Merrem Inj 1,000 MG In NS Inj 200 / 200 100 ML @ 200 mls/hr IV.SIG Q12H [facility] Rx#:[id number] Oral 60 / 60 Output: Urine 350 / 350 Urine Amount (Catheter) 250 / 250 Straight 250 / 250 Other: Weight On Admission 88.451 kg - Constitutional no acute distress, obese - Routine HEENT Exam Head: Present: normocephalic, atraumatic Eye: Present: EOMI, PERRL ENT: Present: mucous membranes moist. Absent: dentition normal (edentulous) - Routine Neck Exam Present: supple. Absent: JVD - Routine Respiratory Exam Present: CTA bilaterally. Absent: respiratory distress, rhonchi - Routine Cardiovascular Exam Present: RRR, S1, S2. Absent: murmur, gallop, rubs - Routine Abdominal Exam Present: soft, normoactive bowel sounds, tenderness (LLQ), distended. Absent: organomegaly, mass - Routine Extremities Exam Present: edema (mild). Absent: cyanosis, clubbing - Routine Skin Exam Present: warm. Absent: cyanosis, erythema, dry, rash - Routine Neurological Exam Present: alert, altered mental status, normal tone - Routine Psychiatric Exam Present: unable to assess Results - Labs CBC & Chem 7: 04/14/18 05:01 04/14/18 05:01 Labs: Laboratory Results - last 24 hr 04/13/18 04/13/18 04/13/18 11:46 11:46 13:55 WBC RBC Hgb Hct MCV MCH MCHC RDW Plt Count MPV Neut % (Auto) Lymph % (Auto) [place] % (Auto) Eos % (Auto) Baso % (Auto) Neut # (Auto) Lymph # (Auto) [place] # (Auto) Eos # (Auto) Baso # (Auto) WBC Differential Differential Comment Sodium Potassium Chloride Carbon Dioxide Anion Gap BUN Creatinine Estimated GFR POC Glucose Random Glucose Lactic Acid 2.9 H Calcium B-Natriuretic Peptide 7 Cancelled 04/13/18 04/13/18 04/13/18 13:55 16:55 18:30 WBC RBC Hgb Hct MCV MCH MCHC RDW Plt Count MPV Neut % (Auto) Lymph % (Auto) [place] % (Auto) Eos % (Auto) Baso % (Auto) Neut # (Auto) Lymph # (Auto) [place] # (Auto) Eos # (Auto) Baso # (Auto) WBC Differential Differential Comment Sodium Potassium 6.3 H Chloride Carbon Dioxide Anion Gap BUN Creatinine Estimated GFR POC Glucose 156 H Random Glucose Lactic Acid 3.8 H Calcium B-Natriuretic Peptide 04/13/18 04/13/18 04/14/18 21:44 22:28 00:35 WBC RBC Hgb Hct MCV MCH MCHC RDW Plt Count MPV Neut % (Auto) Lymph % (Auto) [place] % (Auto) Eos % (Auto) Baso % (Auto) Neut # (Auto) Lymph # (Auto) [place] # (Auto) Eos # (Auto) Baso # (Auto) WBC Differential Differential Comment Sodium Potassium Chloride Carbon Dioxide Anion Gap BUN Creatinine Estimated GFR POC Glucose 99 Random Glucose Lactic Acid 3.0 H 2.4 H Calcium B-Natriuretic Peptide 04/14/18 04/14/18 04/14/18 05:01 05:01 08:34 WBC 11.5 H RBC 4.05 Hgb 11.8 Hct 35.8 MCV 88.3 MCH 29.2 MCHC 33.1 RDW 15.4 Plt Count 328 MPV 6.7 L Neut % (Auto) 73.2 H Lymph % (Auto) 16.2 [place] % (Auto) 9.4 H Eos % (Auto) 0.5 Baso % (Auto) 0.7 Neut # (Auto) 8.4 H Lymph # (Auto) 1.9 [place] # (Auto) 1.1 H Eos # (Auto) 0.1 Baso # (Auto) 0.1 WBC Differential . Differential Comment Auto diff final Sodium 141 Potassium 4.6 D Chloride 102 Carbon Dioxide 32.3 H Anion Gap 7 BUN 30 H Creatinine 1.21 H Estimated GFR 52 L POC Glucose 118 H Random Glucose 116 H Lactic Acid Calcium 7.9 L B-Natriuretic Peptide 04/14/18 11:01 WBC RBC Hgb Hct MCV MCH MCHC RDW Plt Count MPV Neut % (Auto) Lymph % (Auto) [place] % (Auto) Eos % (Auto) Baso % (Auto) Neut # (Auto) Lymph # (Auto) [place] # (Auto) Eos # (Auto) Baso # (Auto) WBC Differential Differential Comment Sodium Potassium Chloride Carbon Dioxide Anion Gap BUN Creatinine Estimated GFR POC Glucose 142 H Random Glucose Lactic Acid Calcium B-Natriuretic Peptide - Imaging Chest X-Ray 04/13/18 11:32 CONCLUSION: 1. Minimal increased perihilar interstitial markings consistent with minimal pulmonary vascular congestion or minimal infiltrate/scattered atelectasis. Head CT 04/13/18 11:32 CONCLUSION: 1. Chronic changes with severe periventricular small vessel ischemic demyelination and an old left SCIENCE [employer]IST infarct. 2. Chronic left-sided mastoiditis. 3. Nothing acute. . Abdomen/Pelvis CT 04/13/18 12:52 CONCLUSION: 1. Mild diffuse urinary bladder wall thickening. 2. Calcified density layering within the urinary bladder consistent with probable bladder stones. 3. Stable nodular enlargement of the adrenal glands bilaterally consistent with possible adrenal hyperplasia. 4. Stable multiple bilateral renal cysts. 5. Enlarged fatty liver. 6. Posterior bibasilar pulmonary infiltrates. Assessment and Plan - Plan sepsis PNA Bacteriua, less likley UTI Lactioc acidosis DOUG - improving cont meropenem for now fu blodd and urine cltures will adjust abx pt vulture
--- NOTE | 2018-04-14 15:54 | ECG ---
Date Performed: 04/13/2018 Time Performed: 11:33:27 PTAGE: 78 years EKG: Sinus rhythm INFERIOR MYOCARDIAL INFARCTION Since the previous tracing, no significant change noted ABNORMAL ECG NO PREVIOUS TRACING DOCTOR: Karlee Eden Interpretating Date/Time 04/14/2018 15:52:30
[2018-04-14] MEDS: Rivaroxaban 20 MG Tablet PO SCH (17:06)
[2018-04-14] MEDS: Docusate Sodium 100 MG Capsule PO SCH (21:02)
[2018-04-14] MEDS: Mirtazapine 15 MG Tablet PO SCH (21:02)
[2018-04-15 07:03] LABS: Baso # (Auto) 0.1 th/mm3 (0.0-0.2); Baso % (Auto) 1.2 % (0.0-2.0); Eos # (Auto) 0.1 th/mm3 (0.0-0.4); Eos % (Auto) 1.2 % (0.0-4.0); Hematocrit 36.2 % (35.0-46.0); Hemoglobin 11.8 gm/dL (11.6-15.3); Lymph # (Auto) 1.9 th/mm3 (1.0-4.8); Lymph % (Auto) 20.3 % (9.0-44.0); Mean Corpuscular HGB Conc 32.5 % (32.0-36.0); Mean Corpuscular Hemoglobin 29.3 pg (27.0-34.0); Mean Corpuscular Volume 90.3 fL (80.0-100.0); Mean Platelet Volume 6.6 fL (7.0-11.0); Mono # (Auto) 0.8 th/mm3 (0.0-0.9); Mono % (Auto) 8.3 % (0.0-8.0); Neut # (Auto) 6.4 th/mm3 (1.8-7.7); Platelet Count 333 th/mm3 (150-450); Red Blood Count 4.01 mil/mm3 (4.00-5.30); Red Cell Distribution Width 15.5 % (11.6-17.2); White Blood Count 9.2 th/mm3 (4.0-11.0)
[2018-04-15 07:10] LABS: Calcium 7.9 mg/dL (8.5-10.1); Carbon Dioxide 30.4 meq/L (21.0-32.0); Potassium 4.1 meq/L (3.5-5.1)
[2018-04-15] MEDS: Insulin NovoLOG Aspart Correctional Sugar Inj SQ SCH ×4 (09:12→21:12)
[2018-04-15] MEDS: amLODIPine 10 MG Tablet PO SCH (09:14)
[2018-04-15] MEDS: Furosemide 40 MG Tablet PO SCH (09:15)
[2018-04-15] MEDS: clonazePAM 0.5 MG Tablet PO SCH ×2 (09:15→21:06)
[2018-04-15] MEDS: Insulin Detemir Inj 1,000 UNIT/10 ML Vial SQ SCH ×2 (09:15→21:11)
[2018-04-15] MEDS: Digoxin 125 MCG Tablet PO SCH (09:15)
[2018-04-15] MEDS: Carvedilol 6.25 MG Tablet PO SCH ×2 (09:15→21:06)
[2018-04-15] MEDS: Escitalopram 10 MG Tablet PO SCH (09:15)
[2018-04-15] MEDS: Lisinopril 20 MG Tablet PO SCH (09:18)
[2018-04-15] MEDS: Senna/Docusate Sodium 8.6/50 MG Tablet PO SCH ×2 (09:18→21:06)
--- NOTE | 2018-04-15 12:29 | P.PNIM ---
Subjective Interval history: More awake and alert. Appears very weak. No sob' Not coughing Denies chest pain Eating fairly well, needs help as she is very weak. Physical Exam Vital signs: Last Vital Signs Temp 98.6 F 04/15/18 08:00 Pulse 104 H 04/15/18 08:00 Resp 20 04/15/18 08:00 BP 191/77 H 04/15/18 08:00 Pulse Ox 100 04/15/18 08:52 Intake & Output 04/13/18 04/14/18 04/15/18 04/16/18 06:59 06:59 06:59 06:59 Intake Total 470 / 470 2340 / 2340 Output Total 600 / 600 1450 / 1450 Balance -130 / -130 890 / 890 Weight 88.2 kg 88.9 kg Narrative: GENERAL: Pleasant 78 yo female, well nourished well developed , more awake and alert. CARDIOVASCULAR: Regular rate and rhythm. RESPIRATORY: No accessory muscle use. Clear to auscultation. Breath sounds equal bilaterally. GASTROINTESTINAL: Abdomen soft, non-tender, nondistended. Hepatic and splenic margins not palpable. MUSCULOSKELETAL: Extremities without clubbing, cyanosis, or edema. No obvious deformities. NEUROLOGICAL: More awake and alert ( name, , location , president of [facility], disoriented by date). No obvious cranial nerve deficits. Motor grossly within normal limits. Follows commands. Urinary Catheter Management Straight: Cath placed during this visit: yes, but has since been removed by the nurse Insertion date: 04/13/18 Insertion time: 12:01 Removal date: 04/13/18 Removal time: 12:06 Results Labs CBC & Chem 7: 04/15/18 05:58 04/15/18 05:58 Labs: Microbiology 04/13/18 11:55 Blood - Peripheral Aerobic Blood Culture - Preliminary No growth in 2 days 04/13/18 11:55 Blood - Peripheral Anaerobic Blood Culture - Preliminary gram positive cocci 04/13/18 11:50 Blood - Peripheral Aerobic Blood Culture - Preliminary No growth in 2 days 04/13/18 11:50 Blood - Peripheral Anaerobic Blood Culture - Preliminary No growth in 2 days 04/13/18 11:55 Catheterized Urine Urine Culture - Final >100,000 cfu/mL mixed gram positive sam (probable contaminantes) Assessment and Plan Plan 78 yo female with Acute toxic/metabolic encephalopathy- 2/2 severe sepsis . Resolving. More awake and alert. Severe Sepsis( leukocytosis, tachycardia, UTI poss PNA, elevated LA, DOUG ) on admission Penicillin allergy DOUG Lactic acidosis . Resolved LA back to normal Blood cultures, urine cultures pending Continue meropenem IV Consult ID, appreciate recommendations IVF- gentle as patient also with h/o CHF Monitor kidney function closely. Repeat LA. Telemetry Hyperkalemia: stop K supplement Hypomagnesemia. Replace mag .Monitor and replace lytes as need History of CVA: continue statin. Continue PT/OT. Cont home meds. History of Atrial fibrillation: Xarelto. Resume home meds Rates are controlled. History of DVT/PE: Xarelto Hypertension: Continue Coreg, Norvasc, lisinopril. Diabetes type 2: Continue her on Levemir 10 units subcutaneous twice a day, with sliding scale insulin for now. CAD: Previous stent. Holding aspirin due to bleed. Continue home medications CHF, chronic: unknown type. Continue home medications. check BNP Continue Lasix and Coreg COPD: No evidence of exacerbation. Continue bronchodilators as needed Anxiety disorder: continue Klonopin. DVT prophylaxis: SCDs, xarelto Discussed with the patient, nurse. Progress Note: Quality VTE Deep Vein Thrombosis/Pulmonary Embolism Present on Admission: Yes
[2018-04-15] MEDS ORDERED: Magnesium Oxide 400 MG Tablet PO ONE (12:32)
[2018-04-15] MEDS: Rivaroxaban 20 MG Tablet PO SCH ×2 (16:39→17:38)
[2018-04-15] MEDS: Sod Chloride 0.9% Inj 1,000 ML IV.CONT SCH (16:41)
--- NOTE | 2018-04-15 17:03 | P.PNID ---
Subjective Remarks: pt is doing ok no new issues no fever she is growing GNR in 1/4 bottles urine clx cw contaminant daughter @ b/s - she thinks her mother is close to her b/l and definetely improved \pt is afbrile Antibiotics: meropenem Allergies/Adverse Reactions: Allergies codeine Allergy (Severe, Verified 04/13/18 11:42) Anaphylaxis diatrizoate meglumine Allergy (Severe, Verified 04/13/18 11:42) Itching gadobenic acid Allergy (Severe, Verified 04/13/18 11:42) Itching gadodiamide Allergy (Severe, Verified 04/13/18 11:42) Itching gadoteridol Allergy (Severe, Verified 04/13/18 11:42) Itching iodixanol Allergy (Severe, Verified 04/13/18 11:42) Itching iohexol Allergy (Severe, Verified 04/13/18 11:42) Itching penicillin G Allergy (Severe, Verified 04/13/18 11:42) Anaphylaxis Objective Vital Signs 04/14/18 20:00 04/15/18 00:00 04/15/18 08:00 Temperature 99 F 99.3 F 98.6 F Pulse Rate 112 H 97 H 104 H Respiratory Rate 18 16 20 Blood Pressure 140/65 119/73 191/77 H Pulse Oximetry 97 94 L 96 04/15/18 08:52 04/15/18 12:00 Temperature 98.2 F Pulse Rate 91 H Respiratory Rate 20 Blood Pressure 139/67 Pulse Oximetry 100 97 Intake & Output 04/14/18 04/15/18 04/15/18 18:59 06:59 18:59 Intake Total 1621 / 1621 719 / 719 Output Total 800 / 800 650 / 650 Balance 821 / 821 69 / 69 Weight 88.9 kg Intake: IV 1621 / 1621 479 / 479 NS Inj 1,000 ML @ 70 mls/hr IV. 1521 / 1521 479 / 479 CONT .[id number] Rx#:[id number] Merrem Inj 1,000 MG In NS Inj 100 / 100 100 ML @ 200 mls/hr IV.SIG Q12H [facility] Rx#:[id number] Oral 240 / 240 Output: Urine 800 / 800 650 / 650 04/13/18 11:55 Blood - Peripheral Aerobic Blood Culture - Preliminary No growth in 2 days 04/13/18 11:55 Blood - Peripheral Anaerobic Blood Culture - Preliminary Staphylococcus coag negative 04/13/18 11:50 Blood - Peripheral Aerobic Blood Culture - Preliminary No growth in 2 days 04/13/18 11:50 Blood - Peripheral Anaerobic Blood Culture - Preliminary No growth in 2 days 04/13/18 11:55 Catheterized Urine Urine Culture - Final >100,000 cfu/mL mixed gram positive sam (probable contaminantes) Lab - Hematology Results 04/14/18 04/15/18 05:01 05:58 WBC 11.5 H 9.2 RBC 4.05 4.01 Hgb 11.8 11.8 Hct 35.8 36.2 MCV 88.3 90.3 MCH 29.2 29.3 MCHC 33.1 32.5 RDW 15.4 15.5 Plt Count 328 333 MPV 6.7 L 6.6 L Neut % (Auto) 73.2 H 69.0 Lymph % (Auto) 16.2 20.3 [place] % (Auto) 9.4 H 8.3 H Eos % (Auto) 0.5 1.2 Baso % (Auto) 0.7 1.2 Neut # (Auto) 8.4 H 6.4 Lymph # (Auto) 1.9 1.9 [place] # (Auto) 1.1 H 0.8 Eos # (Auto) 0.1 0.1 Baso # (Auto) 0.1 0.1 WBC Differential . . Differential Comment Auto diff final Auto diff final Lab - Chemistry Results 04/13/18 04/13/18 04/13/18 11:46 16:55 18:30 Sodium Potassium Chloride Carbon Dioxide Anion Gap BUN Creatinine Estimated GFR POC Glucose 156 H Random Glucose Lactic Acid 3.8 H Calcium B-Natriuretic Peptide Cancelled 04/13/18 04/13/18 04/14/18 21:44 22:28 00:35 Sodium Potassium Chloride Carbon Dioxide Anion Gap BUN Creatinine Estimated GFR POC Glucose 99 Random Glucose Lactic Acid 3.0 H 2.4 H Calcium B-Natriuretic Peptide 04/14/18 04/14/18 04/14/18 05:01 08:34 11:01 Sodium 141 Potassium 4.6 D Chloride 102 Carbon Dioxide 32.3 H Anion Gap 7 BUN 30 H Creatinine 1.21 H Estimated GFR 52 L POC Glucose 118 H 142 H Random Glucose 116 H Lactic Acid Calcium 7.9 L B-Natriuretic Peptide 04/14/18 04/14/18 04/14/18 16:04 18:20 21:08 Sodium Potassium Chloride Carbon Dioxide Anion Gap BUN Creatinine Estimated GFR POC Glucose 213 H 179 H Random Glucose Lactic Acid 1.5 Calcium B-Natriuretic Peptide 04/15/18 04/15/18 04/15/18 05:58 08:44 11:46 Sodium 143 Potassium 4.1 Chloride 106 Carbon Dioxide 30.4 Anion Gap 7 BUN 22 H Creatinine 0.92 Estimated GFR 72 L POC Glucose 128 H 178 H Random Glucose 98 Lactic Acid Calcium 7.9 L B-Natriuretic Peptide 04/15/18 16:07 Sodium Potassium Chloride Carbon Dioxide Anion Gap BUN Creatinine Estimated GFR POC Glucose 227 H Random Glucose Lactic Acid Calcium B-Natriuretic Peptide Imaging: ITS Impressions Chest X-Ray 04/13/18 11:32 CONCLUSION: 1. Minimal increased perihilar interstitial markings consistent with minimal pulmonary vascular congestion or minimal infiltrate/scattered atelectasis. Head CT 04/13/18 11:32 CONCLUSION: 1. Chronic changes with severe periventricular small vessel ischemic demyelination and an old left [employer]ER infarct. 2. Chronic left-sided mastoiditis. 3. Nothing acute. . Abdomen/Pelvis CT 04/13/18 12:52 CONCLUSION: 1. Mild diffuse urinary bladder wall thickening. 2. Calcified density layering within the urinary bladder consistent with probable bladder stones. 3. Stable nodular enlargement of the adrenal glands bilaterally consistent with possible adrenal hyperplasia. 4. Stable multiple bilateral renal cysts. 5. Enlarged fatty liver. 6. Posterior bibasilar pulmonary infiltrates. Physical Exam: GENERAL: NAD SKIN: Warm and dry. HEAD: Atraumatic. Normocephalic. EYES: Pupils equal and round. No scleral icterus. No injection or drainage. ENT: No nasal bleeding or discharge. Mucous membranes pink and moist. NECK: Trachea midline. No JVD. CARDIOVASCULAR: Regular rate and rhythm. RESPIRATORY: No accessory muscle use. Clear to auscultation. Breath sounds equal bilaterally. GASTROINTESTINAL: Abdomen soft, non-tender, nondistended. Hepatic and splenic margins not palpable. MUSCULOSKELETAL: Extremities without clubbing, cyanosis, or edema. NEUROLOGICAL: Awake and alert.Confused, at baseline almost PSYCHIATRIC: uanblte to assess Assessment and Plan - Plan sepsis - clinically resolved ? PNA partially treatd UTI with levaquin PSAE S levaqyuin enterococcus S ampicillin R cipro Lactioc acidosis - resolved DOUG - resolved Coag negative staph becteremia - doubt clinical significance cont meropenem for now fu blood and urine cltures OK to change abx back to levaquine + ampicillin for 5-7 more days OK todc from [facility] if con to improve dw Dr Ashby
[2018-04-15] MEDS: Docusate Sodium 100 MG Capsule PO SCH (21:06)
[2018-04-15] MEDS: Mirtazapine 15 MG Tablet PO SCH (21:06)
[2018-04-16] MEDS: Sod Chloride 0.9% Inj 1,000 ML IV.CONT SCH ×2 (04:30→16:14)
[2018-04-16 05:45] LABS: Anion Gap 6 meq/L (5-15); Blood Urea Nitrogen 13 mg/dL (7-18); Calcium 7.8 mg/dL (8.5-10.1); Carbon Dioxide 31.5 meq/L (21.0-32.0); Chloride 108 meq/L (98-107); Glomerular Filtration Rate Greater Than 89 mL/min (>89); Glucose,Random 131 mg/dL (74-106); Magnesium 1.2 mg/dL (1.5-2.5); Sodium 145 meq/L (136-145)
[2018-04-16 06:25] LABS: Baso % (Auto) 0.5 % (0.0-2.0); Eos # (Auto) 0.1 th/mm3 (0.0-0.4); Eos % (Auto) 1.6 % (0.0-4.0); Hematocrit 38.7 % (35.0-46.0); Hemoglobin 12.1 gm/dL (11.6-15.3); Lymph # (Auto) 1.6 th/mm3 (1.0-4.8); Lymph % (Auto) 19.8 % (9.0-44.0); Mean Corpuscular HGB Conc 31.4 % (32.0-36.0); Mean Corpuscular Hemoglobin 29.2 pg (27.0-34.0); Mean Corpuscular Volume 92.9 fL (80.0-100.0); Mean Platelet Volume 6.2 fL (7.0-11.0); Mono # (Auto) 0.7 th/mm3 (0.0-0.9); Neut # (Auto) 5.5 th/mm3 (1.8-7.7); Neut % (Auto) 69.1 % (16.0-70.0); Platelet Count 336 th/mm3 (150-450); Red Blood Count 4.16 mil/mm3 (4.00-5.30); Red Cell Distribution Width 15.5 % (11.6-17.2); White Blood Count 7.9 th/mm3 (4.0-11.0)
[2018-04-16] MEDS: Senna/Docusate Sodium 8.6/50 MG Tablet PO SCH ×2 (08:54→22:17)
[2018-04-16] MEDS: Furosemide 40 MG Tablet PO SCH (08:54)
[2018-04-16] MEDS: Insulin Detemir Inj 1,000 UNIT/10 ML Vial SQ SCH ×2 (08:54→22:29)
[2018-04-16] MEDS: Escitalopram 10 MG Tablet PO SCH (08:55)
[2018-04-16] MEDS: amLODIPine 10 MG Tablet PO SCH (08:55)
[2018-04-16] MEDS: Lisinopril 20 MG Tablet PO SCH (08:55)
[2018-04-16] MEDS: Carvedilol 6.25 MG Tablet PO SCH ×2 (08:55→22:17)
[2018-04-16] MEDS: clonazePAM 0.5 MG Tablet PO SCH ×2 (08:55→22:19)
[2018-04-16] MEDS: Insulin NovoLOG Aspart Correctional Sugar Inj SQ SCH ×4 (08:55→22:28)
[2018-04-16] MEDS: Digoxin 125 MCG Tablet PO SCH (08:55)
--- NOTE | 2018-04-16 16:25 | P.PNIM ---
Subjective Interval history: More awake and alert. Feels tired. Not eating much . Denies nausea or vomiting. No fever or chills. No cough BP into a higher side Physical Exam Vital signs: Last Vital Signs Temp 97.4 F L 04/16/18 11:58 Pulse 97 H 04/16/18 11:58 Resp 17 04/16/18 11:58 BP 159/72 H 04/16/18 11:58 Pulse Ox 100 04/16/18 11:58 Intake & Output 04/14/18 04/15/18 04/16/18 04/17/18 06:59 06:59 06:59 06:59 Intake Total 470 / 470 2340 / 2340 1680 / 1680 800 / 800 Output Total 600 / 600 1450 / 1450 2350 / 2350 Balance -130 / -130 890 / 890 -670 / -670 800 / 800 Weight 88.2 kg 88.9 kg 91 kg Narrative: GENERAL: Pleasant 78 yo female, well nourished well developed , more awake and alert. CARDIOVASCULAR: Regular rate and rhythm. RESPIRATORY: No accessory muscle use. Clear to auscultation. Breath sounds equal bilaterally. GASTROINTESTINAL: Abdomen soft, non-tender, nondistended. Hepatic and splenic margins not palpable. MUSCULOSKELETAL: Extremities without clubbing, cyanosis, or edema. No obvious deformities. NEUROLOGICAL: More awake and alert ( name, , location , president of [facility], disoriented by date). No obvious cranial nerve deficits. Motor grossly within normal limits. Follows commands. Urinary Catheter Management Straight: Cath placed during this visit: yes, but has since been removed by the nurse Insertion date: 04/13/18 Insertion time: 12: Removal date: 04/13/18 Removal time: 12:06 Results Labs CBC & Chem 7: 04/16/18 04:51 04/16/18 04:51 Labs: Microbiology 04/13/18 11:55 Blood - Peripheral Aerobic Blood Culture - Preliminary No growth in 3 days 04/13/18 11:55 Blood - Peripheral Anaerobic Blood Culture - Final Staphylococcus epidermidis 04/13/18 11:50 Blood - Peripheral Aerobic Blood Culture - Preliminary No growth in 3 days 04/13/18 11:50 Blood - Peripheral Anaerobic Blood Culture - Preliminary No growth in 3 days Assessment and Plan Plan 78 yo female with Acute toxic/metabolic encephalopathy- 2/2 severe sepsis . Resolving. More awake and alert. Severe Sepsis( leukocytosis, tachycardia, UTI poss PNA, elevated LA, DOUG ) on admission Penicillin allergy DOUG Lactic acidosis . Resolved LA back to normal Blood cultures, urine cultures pending Continue meropenem IV. DC meopenem and switch to levaquin pt has penicillin allergy however Consult ID, appreciate recommendations IVF- gentle as patient also with h/o CHF Monitor kidney function closely. Repeat LA. Telemetry Hyperkalemia: stop K supplement Hypomagnesemia. Replace mag .Monitor and replace lytes as need History of CVA: continue statin. Continue PT/OT. Cont home meds. History of Atrial fibrillation: Xarelto. Resume home meds Rates are controlled. History of DVT/PE: Xarelto Hypertension: Continue Coreg, Norvasc, lisinopril. Diabetes type 2: Continue her on Levemir 10 units subcutaneous twice a day, with sliding scale insulin for now. CAD: Previous stent. Holding aspirin due to bleed. Continue home medications CHF, chronic: unknown type. Continue home medications. check BNP Continue Lasix and Coreg COPD: No evidence of exacerbation. Continue bronchodilators as needed Anxiety disorder: continue Klonopin. DVT prophylaxis: SCDs, xarelto Poss DC tomorrow if improves, if eatin gbetter and allergy to levaquin po CM consult for DC plan going to rehab Discussed with the patient, nurse. Progress Note: Quality VTE Deep Vein Thrombosis/Pulmonary Embolism Present on Admission: Yes
[2018-04-16] MEDS: Rivaroxaban 20 MG Tablet PO SCH (17:33)
[2018-04-16] MEDS: Mirtazapine 15 MG Tablet PO SCH (22:17)
[2018-04-16] MEDS: Docusate Sodium 100 MG Capsule PO SCH (22:18)
[2018-04-16] MEDS ORDERED: Magnesium Oxide 400 MG Tablet PO ONE (23:48)
--- NOTE | 2018-04-17 00:12 | P.DS ---
DS: Providers Date of admission: 04/13/18 15:30 Primary care physician: Chandana Dallas MD Consults: 04/13/18 15:55 HUB Only Consult Order Routine Consulting Provider: [employer],Insurance 04/13/18 16:27 HUB Only Consult Order Routine Consulting Provider: [facility],Agency 04/13/18 17:01 Consult to Infectious Diseases Routine Consulting Provider: Hilaria Red Reason for Consultation: severe sepsis Notified:: Service Spoke with:: Dylan Date Notified:: 04/13/18 Time Notified:: 17:12 Ordering Provider: VANDANA Brief History from admission: 78-year-old female with multiple medical problems, presents by ambulance from SNF with recent change of altered mental status. Patient has known history of stroke with left-sided deficit per EMS and records reviewed, but she has been more confused recently. She recently had a UTI diagnosis and seems to be getting more confused when the antibiotics were stopped. Patient denies specific complaints but is a very poor historian and history is mainly obtained through EMS, paperwork, records. DS: Summary 78 yo female with Acute toxic/metabolic encephalopathy- 2/2 severe sepsis . Resolving. More awake and alert. Severe Sepsis( leukocytosis, tachycardia, UTI poss PNA, elevated LA, DOUG ) on admission Penicillin allergy DOUG Lactic acidosis . Resolved LA back to normal Blood cultures, urine cultures pending Continue meropenem IV. DC meopenem and switch to levaquin pt has penicillin allergy however Consult ID, appreciate recommendations IVF- gentle as patient also with h/o CHF Monitor kidney function closely. Repeat LA. Telemetry Hyperkalemia: stop K supplement Hypomagnesemia. Replace mag .Monitor and replace lytes as need History of CVA: continue statin. Continue PT/OT. Cont home meds. History of Atrial fibrillation: Xarelto. Resume home meds Rates are controlled. History of DVT/PE: Xarelto Hypertension: Continue Coreg, Norvasc, lisinopril. Diabetes type 2: Continue her on Levemir 10 units subcutaneous twice a day, with sliding scale insulin for now. CAD: Previous stent. Holding aspirin due to bleed. Continue home medications CHF, chronic: unknown type. Continue home medications. check BNP Continue Lasix and Coreg COPD: No evidence of exacerbation. Continue bronchodilators as needed Anxiety disorder: continue Klonopin. DVT prophylaxis: SCDs, xarelto The patient is improving, cleared by infectious disease for discharge to follow- up as outpatient with PCP and consultants. Time Spent with Patient Total time spent providing and/or coordinating discharge services: >30 min Greater than 30 minutes Quality: VTE Deep Vein Thrombosis/Pulmonary Embolism Present on Admission: Yes Exam Narrative Exam Narrative: GENERAL: Pleasant 78 yo female, well nourished well developed , more awake and alert at baseline per family at bedside. CARDIOVASCULAR: Regular rate and rhythm. RESPIRATORY: No accessory muscle use. Clear to auscultation. Breath sounds equal bilaterally. GASTROINTESTINAL: Abdomen soft, non-tender, nondistended. Hepatic and splenic margins not palpable. MUSCULOSKELETAL: Extremities without clubbing, cyanosis, or edema. No obvious deformities. NEUROLOGICAL: More awake and alert ( name, , location , president of [facility], disoriented by date). No obvious cranial nerve deficits. Motor grossly within normal limits. Follows commands. Results Labs on day of discharge: Labs from last 24 hours 04/16/18 04/16/18 04/16/18 22:22 16:13 11:42 WBC RBC Hgb Hct MCV MCH MCHC RDW Plt Count MPV Neut % (Auto) Lymph % (Auto) [place] % (Auto) Eos % (Auto) Baso % (Auto) Neut # (Auto) Lymph # (Auto) [place] # (Auto) Eos # (Auto) Baso # (Auto) WBC Differential Differential Comment Sodium Potassium Chloride Carbon Dioxide Anion Gap BUN Creatinine Estimated GFR POC Glucose 239 H 137 H 176 H Random Glucose Calcium Magnesium 04/16/18 04/16/18 04/16/18 07:05 04:51 04:51 WBC 7.9 RBC 4.16 Hgb 12.1 Hct 38.7 MCV 92.9 MCH 29.2 MCHC 31.4 L RDW 15.5 Plt Count 336 MPV 6.2 L Neut % (Auto) 69.1 Lymph % (Auto) 19.8 Sequoyah % (Auto) 9.0 H Eos % (Auto) 1.6 Baso % (Auto) 0.5 Neut # (Auto) 5.5 Lymph # (Auto) 1.6 [place]ah # (Auto) 0.7 Eos # (Auto) 0.1 Baso # (Auto) 0.0 WBC Differential . Differential Comment Auto diff final Sodium 145 Potassium 4.0 Chloride 108 H Carbon Dioxide 31.5 Anion Gap 6 BUN 13 Creatinine 0.72 Estimated GFR Greater than 89 POC Glucose 125 H Random Glucose 131 H Calcium 7.8 L Magnesium 1.2 L Preliminary micro results at discharge 04/13/18 11:55 Aerobic Blood Culture - Preliminary Blood - Peripheral No growth in 3 days 04/13/18 11:50 Aerobic Blood Culture - Preliminary Blood - Peripheral No growth in 3 days Anaerobic Blood Culture - Preliminary No growth in 3 days Impressions ITS Impressions Chest X-Ray 04/13/18 11:32 CONCLUSION: 1. Minimal increased perihilar interstitial markings consistent with minimal pulmonary vascular congestion or minimal infiltrate/scattered atelectasis. Head CT 04/13/18 11:32 CONCLUSION: 1. Chronic changes with severe periventricular small vessel ischemic demyelination and an old left SURFACE HYDROLOGIST infarct. 2. Chronic left-sided mastoiditis. 3. Nothing acute. . Abdomen/Pelvis CT 04/13/18 12:52 CONCLUSION: 1. Mild diffuse urinary bladder wall thickening. 2. Calcified density layering within the urinary bladder consistent with probable bladder stones. 3. Stable nodular enlargement of the adrenal glands bilaterally consistent with possible adrenal hyperplasia. 4. Stable multiple bilateral renal cysts. 5. Enlarged fatty liver. 6. Posterior bibasilar pulmonary infiltrates. Discharge Plan Discharge Disposition Patient Disposition: Discharge to SNF Discharge Condition Condition: Stable Discharge Order Discharge Orders: Discharge Order (Routine); Ordered 04/17/18 Ordered By: Patience Ashby Physicians Team ED Provider: Kacie Schmidt Primary Care Provider: Chandana Dallas Attending Provider: Patience Ashby Other Providers: [facility],Insurance ; [facility],Agency ; Hilaria Red Rxs /Orders / Referrals /Forms Prescriptions: New levofloxacin 750 mg Tablet 750 mg PO DAILY Qty: 7 RF: 0 Continue furosemide [Lasix] 40 mg Tablet 40 mg PO DAILY RF: 0 carvedilol [Coreg] 6.25 mg Tablet 6.25 mg PO Q12HR RF: 0 atorvastatin [Lipitor] 20 mg Tablet 20 mg PO HS RF: 0 insulin glargine [Lantus U-100 Insulin] 100 unit/mL Solution 26 unit SUBCUT QAM RF: 0 insulin glargine [Lantus U-100 Insulin] 100 unit/mL Solution 18 unit SUBCUT QPM RF: 0 clonazepam [Klonopin] 0.5 mg Tablet 0.5 mg PO BID RF: 0 potassium chloride [Klor-Con 10] 10 mEq Tablet Extended Release 10 meq PO DAILY RF: 0 glucagon (human recombinant) [GlucaGen HypoKit] 1 mg Recon Soln 1 mg IM DIRECTED PRN (Reason: Hypoglycemia) RF: 0 docusate sodium [Colace] 100 mg Capsule 100 mg PO HS RF: 0 digoxin [Lanoxin] 125 mcg Tablet 0.125 mg PO DAILY RF: 0 insulin lispro [Humalog U-100 Insulin] 100 unit/mL Solution 10 unit SUBCUT BIDAC RF: 0 escitalopram oxalate [Lexapro] 10 mg Tablet 10 mg PO DAILY RF: 0 lisinopril 20 mg Tablet 20 mg PO DAILY RF: 0 tramadol 50 mg Tablet 50 mg PO Q8HR PRN (Reason: Moderate to severe pain) RF: 0 pantoprazole 40 mg Tablet,Delayed Release (Dr/Ec) 40 mg PO BID RF: 0 metformin 1,000 mg Tablet 1,000 mg PO BID RF: 0 mirtazapine [Remeron] 15 mg Tablet 7.5 mg PO HS RF: 0 rivaroxaban 20 mg Tablet 20 mg PO QPM RF: 0 amlodipine [Norvasc] 10 mg tablet 10 mg PO DAILY RF: 0 Discontinued nitrofurantoin monohyd/m-cryst 100 mg Capsule 100 mg PO BIDPC Qty: 14 RF: 0 Referrals: Chandana Dallas MD [Primary Care Provider] - See Instructions ( Please call the physician's office to book the appointment to be seen within [2-3 days ].) Discharge Instructions Patient Printed Instructions: Levofloxacin (By mouth), Acute Kidney Injury (GEN ), Urinary Tract Infection in Women (DC), Sepsis (IP), Altered Mental Status (ED ) Status ED Status: Left Department
[2018-04-17] MEDS: Sod Chloride 0.9% Inj 1,000 ML IV.CONT SCH (06:26)
[2018-04-17 06:28] LABS: Baso # (Auto) 0.1 th/mm3 (0.0-0.2); Baso % (Auto) 0.6 % (0.0-2.0); Eos # (Auto) 0.1 th/mm3 (0.0-0.4); Eos % (Auto) 1.5 % (0.0-4.0); Hematocrit 33.2 % (35.0-46.0); Hemoglobin 10.9 gm/dL (11.6-15.3); Lymph # (Auto) 1.7 th/mm3 (1.0-4.8); Lymph % (Auto) 18.5 % (9.0-44.0); Mean Corpuscular Hemoglobin 29.9 pg (27.0-34.0); Mean Corpuscular Volume 90.6 fL (80.0-100.0); Mean Platelet Volume 6.4 fL (7.0-11.0); Mono # (Auto) 0.7 th/mm3 (0.0-0.9); Mono % (Auto) 7.2 % (0.0-8.0); Neut # (Auto) 6.8 th/mm3 (1.8-7.7); Neut % (Auto) 72.2 % (16.0-70.0); Platelet Count 333 th/mm3 (150-450); Red Blood Count 3.66 mil/mm3 (4.00-5.30); White Blood Count 9.4 th/mm3 (4.0-11.0)
[2018-04-17 07:00] LABS: Anion Gap 5 meq/L (5-15); Blood Urea Nitrogen 12 mg/dL (7-18); Calcium 7.4 mg/dL (8.5-10.1); Carbon Dioxide 32.3 meq/L (21.0-32.0); Chloride 109 meq/L (98-107); Glomerular Filtration Rate Greater Than 89 mL/min (>89); Glucose,Random 100 mg/dL (74-106); Magnesium 1.2 mg/dL (1.5-2.5); Potassium 3.8 meq/L (3.5-5.1); Sodium 146 meq/L (136-145)
[2018-04-17 07:13] LABS: Albumin 2.1 g/dL (3.4-5.0); Calcium-Albumin Corrected 8.9 mg/dL (8.5-10.1)
[2018-04-17] MEDS: Insulin NovoLOG Aspart Correctional Sugar Inj SQ SCH ×3 (08:34→16:35)
[2018-04-17] MEDS: Insulin Detemir Inj 1,000 UNIT/10 ML Vial SQ SCH (08:37)
[2018-04-17] MEDS: Senna/Docusate Sodium 8.6/50 MG Tablet PO SCH (08:38)
[2018-04-17] MEDS: amLODIPine 10 MG Tablet PO SCH (08:40)
[2018-04-17] MEDS: Carvedilol 6.25 MG Tablet PO SCH (08:40)
[2018-04-17] MEDS: clonazePAM 0.5 MG Tablet PO SCH (08:41)
[2018-04-17] MEDS: Furosemide 40 MG Tablet PO SCH (08:41)
[2018-04-17] MEDS: Digoxin 125 MCG Tablet PO SCH (08:41)
[2018-04-17] MEDS: Lisinopril 20 MG Tablet PO SCH (08:42)
[2018-04-17] MEDS: Escitalopram 10 MG Tablet PO SCH (08:42)
[2018-04-17] MEDS ORDERED: levoFLOXacin 750 MG Tablet PO SCH (09:00)
[2018-04-17] MEDS ORDERED: Magnesium Oxide 400 MG Tablet PO SCH (09:00)
[2018-04-17] MEDS: Rivaroxaban 20 MG Tablet PO SCH (17:03)
== END 2018-04-17 19:20 ==
LOC: NEPC 11:23 → NEDA 15:30 → N07 17:26
PROVIDERS: ADMIT Hospitalist; ATTEND Hospitalist